=== PATIENT | female | born 1960 | race Caucasian/White ===

== ENCOUNTER → 2018-03-15 13:50 | Outpatient (CLI) | payer BC, SELFPAY ==
[2017-09-03 16:12] VITALS: BMI 23.8
--- NOTE | 2018-03-15 13:54 | CT_ITS ---
STUDY: CT ABDOMEN AND PELVIS WITH CONTRAST REASON FOR EXAM: Female, 57 years old. ANAL CA-RAD TX RADIATION DOSAGE (If Supplied By Facility): CTDIvol = ( 12.40 ) mGy, DLP = ( 987.55 ) mGycm TECHNIQUE: Transaxial images were obtained from the dome of the diaphragm to the symphysis pubis without oral contrast. 100 ml of Isovue 300 contrast was administered. Sagittal and coronal images were reconstructed. Individualized dose optimization techniques were used for this CT. COMPARISON: CTOct 2016 9:26am FINDINGS: The visualized lung bases are unremarkable. The visualized portions of the heart are within normal limits. There is a stable hypodensity in the left lobe of the liver. Normal gallbladder and extrahepatic biliary system. Normal spleen. Normal pancreas. Normal bilateral adrenal glands. Normal right kidney. Normal left kidney. Normal visualized stomach. Normal small intestine. Normal colon. The appendix is visualized and appears normal. There is diffuse atherosclerotic calcification of the abdominal aorta, without a demonstrated aneurysm. Normal inferior vena cava. Normal retroperitoneum. Normal urinary bladder. Normal visualized uterus. Normal abdominal wall. There are diffuse degenerative changes of the visualized lumbar spine. Loss of intervertebral disc height at L5-S1. Vacuum disc phenomenon at L5-S1. CT/Abdomen/Pelvis W IV Cont ONLY IMPRESSION: There is a stable hypodensity in the left lobe of the liver. Stable subcentimeter inguinal lymph nodes. Anal mass is not clearly appreciated. Electronically Signed: Lizandro Ventura MD at 22:51 EDT , Service support ,
--- NOTE | 2018-03-15 13:54 | CT_ITS ---
STUDY: CT CHEST WITH CONTRAST REASON FOR EXAM: Female, 57 years old. ANAL CA-RAD TX RADIATION DOSAGE (If Supplied By Facility): CTDIvol = ( 12.40 ) mGy, DLP = ( 987.55 ) mGycm TECHNIQUE: Transaxial imaging was performed following intravenous administration of 100 ml of Isovue 300 contrast material. Individualized dose optimization techniques were used for this CT. COMPARISON: None. FINDINGS: There is a right Port-A-Cath and/or mediport in place. The tip is in the superior vena cava. There are emphysematous changes of the lungs with emphysematous blebs. There is no demonstrated pleural abnormality. There are calcifications of the coronary arteries. Normal mediastinum. Normal hilar regions. Normal enhanced pulmonary arteries. There is atherosclerotic tortuosity of the aortic arch and descending thoracic aorta. There are multi-level degenerative changes of the thoracic spine. There is no demonstrated abnormality of the visualized upper abdomen. CT/Chest WITH Contrast IMPRESSION: There are coronary arterial calcifications. No evidence for metastatic disease to the chest. Electronically Signed: Lizandro Ventura MD at 22:48 EDT , Service support ,
[2018-03-15 14:50] LABS: CREATININE FINGERSTICK 0.7 mg/dL (0.55-1.02); EGFR FINGERSTICK > 60.0000 mL/min (>60)
== END ==
PROVIDERS: Visit Provider Internal Medicine Hematology & Oncology
DX: C21.0 Malignant neoplasm of anus, unspecified (principal)
CPT/HCPCS: 71260; 74177; Q9967

== ENCOUNTER → 2018-06-19 09:21 | Outpatient (CLI) | payer SELFPAY ==
[2018-03-16 10:01] VITALS: BMI 23.8
[2018-06-14 14:45] VITALS: BMI 24.6
--- NOTE | 2018-06-19 09:34 | BI_ITS ---
MAMMOGRAPHY - BILATERAL SCREENING REASON FOR EXAM: Female, 57 years old. Routine annual screening examination. PERTINENT HISTORY: Non-contributory. TECHNIQUE: Digital bilateral breast kady (3D mammographic acquisition) in the CC and MLO projections. 2-D mediolateral oblique (MLO) and craniocaudad (CC) views of both breasts were obtained. CAD: Full Field Digital Mammography with Computer Added Detection was performed. COMPARISON: Comparison is made with prior examination dated October 23, 2010. FINDINGS: Breast Composition: The breasts are heterogeneously dense, which may obscure small masses. There are no dominant masses or suspicious calcifications. No other significant abnormalities are identified. There has been no significant change since the prior study. BI/SCREENING MAMM (CAD), BILAT IMPRESSION: Stable bilateral screening mammogram. Yearly follow-up mammogram recommended. (A) ASSESSMENT CATEGORY: BIRADS Category 1: Negative. A letter regarding these results will be sent to the patient by the facility within 30 days. Approximately 10% of breast cancers are not detected by mammography. A normal mammogram should not delay biopsy of a clinically suspicious abnormality. [id number] Electronically Signed: Ricky Guy MD at 14:34 EDT Tel [phone], Service support ,
== END ==
PROVIDERS: Visit Provider Internal Medicine Hematology & Oncology
DX: Z12.31 Encounter for screening mammogram for malignant neoplasm of breast (principal)
CPT/HCPCS: 77063; 77067

== ENCOUNTER 2018-08-18 08:51 | Day surgery (SDC) | payer BC, SELFPAY ==
[2018-06-14 14:45] VITALS: BMI 24.6
[2018-08-04 13:30] VITALS: BMI 24.0
[2018-08-18 09:17] VITALS: BP 134/91; PULSE 74; RESP 16; TEMP 36.9; O2SAT 100; BMI 24.9
--- NOTE | 2018-08-18 11:10 | DCINST_ITS ---
Discharge Diet: Light diet - advance as tolerated - If you have questions about your diet instructions, please talk to your doctor. Discharge Activity: May Not Drive - for 1 week or while taking narcotic pain medicine. May shower in (days): 1 Lifting Restrictions: 10 pounds Call your doctor if your incision/area has: Continuous Slow Oozing, Sudden Increased Bleeding, Increased Pain/ Swelling, Increased Redness, Foul Smelling Discharge Call your doctor if you observe: Fever of 101 or Higher Suture Line Care: Avoid Pulling/Pushing, Avoid Pinching/Bending Additional Dressing/Incision Instructions:: Change or remove dressing in 4 days. Leave steri-strips in place for 1 week. Allergies/Adverse Reactions: Allergies cyclobenzaprine [From Flexeril] Allergy (Severe, Verified 08/17/18 10:00) Hives Medications to take at Discharge Multivitamin [Multiple Vitamins] 1 ea PO DAILY 06/17/17 Ibuprofen [Motrin] 600 mg PO Q4H PRN PRN 07/02/17 Vitamin E 1,000 unit PO DAILY #60 cap 01/19/18 Primary Care Physician: Care Physician,No Primary [Primary Care Provider] - Test Results: Test results from this visit will be discussed in further detail at your follow- up appointment, if applicable. Please Follow Up With: Bradley Archer MD - [phone] When: Call to make an appointment to be seen in about 10 days.
--- NOTE | 2018-08-18 11:10 | PCM.OPRPT ---
Problem List (1) Anal cancer Status: Chronic Report of Operation Date of Procedure: 08/18/18 Pre-Operative Diagnosis: anal cancer Post-Operative Diagnosis: same Surgery/Procedure Performed:: Anal/rectal exam under anesthesia Type of Anesthesia:: General Anesthesiologist: Alec Terry Description of Procedure: Patient was brought into the operating room. Placed in the supine position. Under excellent general anesthetic her legs were placed up in stirrups and the anal area the vaginal area was sterilely prepped and draped in the usual fashion. Visual inspection of the anus revealed no obvious lesions on the skin. It appeared normal. She did have some anal skin tags which were soft and nonpathologic. Digital rectal exam of the anus revealed no masses within the muscle whatsoever it felt smooth pliable nothing hard nothing suspicious. She had good anal tone. I did a deep rectal exam and I felt nothing suspicious all within the rectal cavity. Visual inspection within the rectum also revealed nothing abnormal within the mucosa. There was nothing here for me to biopsy it all appeared very normal. The patient tolerated the procedure well. - Admit VTE Documentation VTE Present on Admission: No VTE Mechan Device Prophylaxis: SCD's VTE Pharm Prophylaxis ordered?: No Reason prophylaxis not ordered:: Treatment Not Indicated
[2018-08-18 11:17] VITALS: BP 123/78; BP 134/91; PULSE 72; RESP 16; TEMP 37.4; O2SAT 95
[2018-08-18 11:30] VITALS: BP 111/74; BP 134/91; PULSE 70; RESP 16; O2SAT 96
[2018-08-18 11:42] VITALS: BP 121/85; BP 134/91; PULSE 68; RESP 16; TEMP 37.5; O2SAT 95
--- NOTE | 2018-08-18 12:09 | SUR.PHASEII ---
CLARIFIED D/C INSTRUCTIONS WITH DR PANDYA, DOES NOT NEED 10 LB LIFTING RESTRICTIONS, DRIVING RESTRICTION [OTHER THAN STANDARD 24 HOUR PROTOCOL], NO INCISION OR DRESSING CARE. HOWEVER, MUST VOID PRIOR TO D/C. PATIENT UPDATED.
[2018-08-18 12:10] VITALS: BP 134/91
--- OUTSIDE RECORDS SUMMARY | 2018-11-19 09:27 | XMS RPT_ITS ---
:1960 Author Organization OHIP Support Name Relationship Address Phone ARJUN JONES Unavailable [id number] + [place] [address] JANKATHERYN, JAVIER Unavailable Unavailable + [facility] Unavailable [address] + [place] [address] HEBER ARJUN Unavailable [address] + [place] [address] JAN, JAVIER Unavailable Unavailable + [facility] Unavailable [address] + [place] [address] FORMERLY [facility], ARJUN Unavailable [address] + [place] [address] JANKATHERYN, JAVIER Unavailable Unavailable + [facility] Unavailable [address] + [place] [address] HEBER, ARJUN Unavailable [address] + [place] [address] JANAS, JAVIER Unavailable Unavailable + [facility] Unavailable [address] + [place] [address] JAN, JAVIER Unavailable . + [place] [address] HEBER ARJUN Unavailable [address] + [place] [address] [facility] Unavailable [address] + [place] [address] Julio Jones Unavailable Unavailable + Julio Jones Unavailable Unavailable + JANAS, JAVIER Unavailable Unavailable + JANAS, ARJUN Unavailable [address] + [place] [address] [facility] Unavailable [address] + [place] [address] JANAS, JAVIER Unavailable Unavailable + JANAS, ARJUN Unavailable [address] + [place] [address] [facility] Unavailable [address] + [place] [address] JANAS, JAVIER Unavailable Unavailable + JANAS, ARJUN Unavailable [address] + [place] [address] [facility] Unavailable [address] + [place] [address] JANAS, JAVIER Unavailable . + [place] [address] JANAS, ARJUN Unavailable [address] + [place] [address] [facility] Unavailable [address] + [place] [address] JANAS, JAVIER Unavailable . + [place] [address] JANAS, ARJUN Unavailable [address] + [place] [address] [facility] Unavailable [address] + [place] [address] JANAS, JAVIER Unavailable Unavailable + [place] [address] JANAS, ARJUN Unavailable [address] + [place] [address] [facility] Unavailable [address] + [place] [address] JANAS, JAVIER Unavailable Unavailable + [place] [address] JANAS, ARJUN Unavailable [address] + [place] [address] [facility] Unavailable [address] + [place] [address] JANAS, JAVIER Unavailable Unavailable + [place] [address] JANAS, ARJUN Unavailable [address] + [place] [address] [facility] Unavailable [address] + [place] [address] JANAS, JAVIER Unavailable . + [place] [address] JAN, EMERSON Unavailable . + [place] [address] [facility] Unavailable [address] + [place] [address] JANAS, ARJUN Unavailable [address] + [place] [address] [facility] Unavailable [address] + [place] [address] Care Team Providers Name Role Phone Irvin Taylor Attending Unavailable PROVIDER, UNKNOWN Referring Unavailable No, PCP Primary Care Unavailable Irvin Taylor Attending Unavailable PROVIDER, UNKNOWN Referring Unavailable No, PCP Primary Care Unavailable Bradley Archer Attending Unavailable KristinusJuan Attending Unavailable Primay Care Physicia, No Referring Unavailable Primay Care Physicia, No Primary Care Unavailable Isckarus, Mansour Consulting Unavailable Mickykarus, Mansour Attending Unavailable Primay Care Physicia, No Primary Care Unavailable Primay Care Physicia, No Referring Unavailable Bradley Archer Attending Unavailable Primay Care Physicia, No Referring Unavailable Bradley Archer Attending Unavailable Primay Care Physicia, No Referring Unavailable Primay Care Physicia, No Primary Care Unavailable Isckarus, Mansour Attending Unavailable Primay Care Physicia, No Primary Care Unavailable Isckarus, Mansour Consulting Unavailable Jason Sorto Attending Unavailable Primay Care Physicia, No Referring Unavailable Primay Care Physicia, No Primary Care Unavailable Isckarus, Mansour Consulting Unavailable Primay Care Physicia, No Primary Care Unavailable Isckarus, Mansour Attending Unavailable Isckarus, Mansour Referring Unavailable Isckarus, Mansour Attending Unavailable Primay Care Physicia, No Referring Unavailable Primay Care Physicia, No Primary Care Unavailable Isckarus, Mansour Consulting Unavailable [place], Bradley Attending Unavailable Isckarus, Mansour Referring Unavailable Isckarus, Mansour Attending Unavailable Primay Care Physicia, No Referring Unavailable Primay Care Physicia, No Primary Care Unavailable Isckarus, Mansour Consulting Unavailable Isckarus, Mansour Attending Unavailable Primay Care Physicia, No Primary Care Unavailable NoreenJason Attending Unavailable Gianni, Bradley Attending Unavailable Primay Care Physicia, No Referring Unavailable [place], Bradley Attending Unavailable [place], Bradley Referring Unavailable Primay Care Physicia, No Primary Care Unavailable PROBLEMS PROBLEMS DATE TYPE CONDITION / CODE ATTENDING STATUS SOURCE 09/22/2018 Unknown C21.0 - Malignant Isckarus, Active [place] neoplasm of anus, [facility] unspecified / Hospital C21.0(ICD-10) Repository 09/22/2018 Unknown C21.1 - Malignant Isckarus, Active [place] neoplasm of anal [facility] canal / Hospital C21.1(ICD-10) Repository 09/22/2018 Unknown C77.9 - Secondary Isckarus, Active [place] and unspecified [facility] malignant neoplasm Hospital of lymph node, Repository unspecified / C77.9(ICD-10) 07/01/2018 Admitting Other specified Brandon, Active [facility] disorders of [facility] urethra / Repository N36.8(ICD-10) 07/01/2018 Admitting Personal history Brandon, Active [facility] Diagnosis of nicotine [facility] dependence / Repository Z87.891(ICD-10) 07/01/2018 Admitting Prsnl hx of malig Brandon, Active [facility] Diagnosis neoplm of rectum, [facility] rectosig junct, Repository and anus / Z85.048(ICD-10) 07/01/2018 Admitting Personal history Brandon, Active [facility] Diagnosis of irradiation / [facility] Z92.3(ICD-10) Repository 07/01/2018 Admitting Allergy status to Brandon, Active [facility] Diagnosis oth drug/meds/biol [facility] subst status / Repository Z88.8(ICD-10) 07/01/2018 Admitting Overweight / Brandon, Active [facility] Diagnosis E66.3(ICD-10) [facility] Repository 07/01/2018 Admitting Body mass index Brandon, Active [facility] (BMI) 25.0-25.9, [facility] adult / Repository Z68.25(ICD-10) 06/25/2018 Admitting Encounter for Jeri Taylor Diagnosis other [facility] preprocedural Repository examination / Z01.818(ICD-10) 01/19/2018 Unknown T66.XXXA - Jason Sorto Active [facility] sickness, Hospital unspecified, Repository initial encounter / T66.XXXA(ICD-10) PROCEDURES PROCEDURES No Procedure Records FoundRESULTS RESULTS ONCOLOGY VISIT REPORT Observed: 09/15/2018 Status: F Source: [place] 3:33 PM [facility] REPOSITORY [facility] Medical Oncology [facility] [place] [address] OFFICE VISIT Date of Service: 09/15/18 1520 MR#: [id number] Acct: [id number] Name: LYNNETTE JONES Rep #: [id number] : 1960 From: Juan Alvarez MD Age/Sex: 57/F Location: OMD Status: Signed - Problem List (1) Anal cancer Status: Chronic (2) Regional lymph node metastasis present Status: Chronic - Date of Service Date of Service:: 09/15/18 - Chief Complaint anal cancer followup - History of Present Illness Patient is a 56-year-old female who over the course of the past 2 months or so has had an increasing sense of discomfort and fullness in the anal rectal area. Sometime later she felt an enlarged lymph node in the left groin which was confirmed on a CT scan of the abdomen and pelvis. On June 18, 2017 she underwent colonoscopy by Dr. Archer which revealed a mass lesion without ulceration extending from the anus into the rectum approximately 3 cm in length. An ultrasound-guided needle core biopsy from the left inguinal lymph node on June 19, 2017 revealed a metastatic squamous cell carcinoma. The patient otherwise has no known chronic medical illnesses. However she has been a smoker most of her adult life and consumes an average 12 pack of beer every week. 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 PET-CT initial staging on June 29, 2017 showed abnormal uptake confined to the anorectal area and the left groin. Treatment: 5400 cGy in 30 fractions to the primary anal tumor with a margin, 5040 cGy in 30 fractions to the left inguinal LN, and 4500 cGy in 30 fractions to the elective lymph node volumes including perirectal, pre-sacral, and bilateral inguinal and external/internal iliac nodes. The patient received concurrent chemotherapy with CIV 5-FU and MMC. Date of first treatment: 07/14/17 Date of last treatment: 08/26/17 - Past Medical/Social History Past Medical History Other Past Medical History: REFLUX Cancer: Rectal cancer Past Surgical History Other Surgical History: GANGLION CYST RIGHT WRIST Family History Paternal Past Medical History: Heart disease,Hyperlipidemia,Hypertension Maternal Past Medical History: Heart disease,Hyperlipidemia,Hypertension Social History Smoking Status Former smoker Review of Systems Constitutional:: Denies: Fever, Sweats, Weight loss, Appetite change, Chills Cardiovascular:: Denies: Chest pain, Palpitations, Dyspnea on exertion, Orthopnea, PND, Shortness of breath Respiratory: Denies: Cough, Hemoptysis, Shortness of Breath, Wheezing Gastrointestinal:: Denies: Abdominal pain, Nausea, Vomiting, Diarrhea, Constipation, Hematochezia Genitourinary: Denies: Dysuria, Hematuria, 15, Flank pain Musculoskeletal:: Denies: Back pain, Myalgia, Arthralgia Skin: Denies: Rash, Skin Changes, Wounds Neurological:: Denies: Headache, Dizziness, Visual changes, Tinnitus, Hearing loss Psychiatric: Denies: Anxiety, Depression, Homicidal Ideations, Suicidal Ideations Vital Signs Height 5 ft 4 in Weight: 68.039 kg Weight in Pounds 150.0 lbs BMI 24.6 Pulse Ox 100 - Physical Exam General: Alert, Oriented x3, No apparent distress, - - ECOG 0 HEENT: Atraumatic, PERRLA, EOMI, Normocephalic Oropharynx:: Dry mucosa Neck:: Supple, Trachea midline. Negative for: JVD, bilateral Cardiac:: Regular rate, Regular rhythm, Normal S1, Normal S2. Negative for: Murmur Lungs: Clear to auscultation, Excusion symmetrical. Negative for: Rhonchi, Wheezes Abdomen:: Soft, Non-tender, Non-distended. Negative for: Hepatosplenomegaly Extremities:: Negative for: Cyanosis, Edema Neurological: Neuro grossly intact Skin:: Negative for: Lesions, Rash, Petechiae, Ecchymosis Psychiatric:: Appropriate affect, Euthymic Lymphatics:: - - No inguinal adenopathy. 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 HIV NEG . Received definitive combined chemoradiation with intent to cure and sparing the anal sphincter 07-12. Seen July of [address] Archer (Anal/rectal exam under anesthesia). She is in complete remission she will go on surveillance with: * GARRISON every 3-6 months for 5 years. * Inguinal lymph node assessment by palpation +/-ultrasound every 3-6 months for 5 years. * Ansocopy every 6-12 months for 3 years. * Annual chest, abdomen and pelvis CT for 3 years, due February 2019. Impression and plan discussed. Follow-up in 3 months Annual screening mammo to schedule 05/[address] chest for screening for lung cancer 02/2019. Medications: Prescriptions This Visit Medication Instructions Recorded Ibuprofen [Motrin] 600 mg PO Q4H PRN PRN 07/02/17 Vitamin E 1,000 unit PO DAILY #60 cap 01/19/18 Primary Care Provider: No Primary Care Phys Referring Provider: 09/15/18 1533 <Electronically signed by Juan Alvarez MD> Date Juan Alvarez MD Cosigner Signature: Date (if applicable) CC: OPERATIVE REPORT Observed: 08/19/2018 Status: F Source: [place] 11:17 AM [facility] REPOSITORY [facility] Medical Records Department [address] [place] [address] Operative Report 08/18/18 1110 MR#: [id number] Acct: [id number] Name: LYNNETTE JONES Rep #: [id number] : 1960 57 From: Bradley Archer MD PCP: Care Physician, No Primary Status: [facility] Location: [facility] Problem List (1) Anal cancer Status: Chronic Report of Operation Date of Procedure: 08/18/18 Pre-Operative Diagnosis: anal cancer Post-Operative Diagnosis: same Surgery/Procedure Performed:: Anal/rectal exam under anesthesia Type of Anesthesia:: General Anesthesiologist: Alec Terry Description of Procedure: Patient was brought into the operating room. Placed in the supine position. Under excellent general anesthetic her legs were placed up in stirrups and the anal area the vaginal area was sterilely prepped and draped in the usual fashion. Visual inspection of the anus revealed no obvious lesions on the skin. It appeared normal. She did have some anal skin tags which were soft and nonpathologic. Digital rectal exam of the anus revealed no masses within the muscle whatsoever it felt smooth pliable nothing hard nothing suspicious. She had good anal tone. I did a deep rectal exam and I felt nothing suspicious all within the rectal cavity. Visual inspection within the rectum also revealed nothing abnormal within the mucosa. There was nothing here for me to biopsy it all appeared very normal. The patient tolerated the procedure well. - Admit VTE Documentation VTE Present on Admission: No VTE Mechan Device Prophylaxis: SCD's VTE Pharm Prophylaxis ordered?: No Reason prophylaxis not ordered:: Treatment Not Indicated 08/19/18 1117 <Electronically signed by Bradley Archer MD> Date Bradley Archer MD CC: No Primary Care Physician; Bradley Archer MD Signed DISCHARGE INSTRUCTION Observed: 08/18/2018 Status: F Source: [place] 11:10 AM [facility] REPOSITORY [facility] Medical Records Department [address] [place] [address] Instructions for Home/Discharge Instructions 08/18/18 1109 MR#: [id number] Acct: [id number] Name: LYNNETTE JONES Rep #: [id number] : 1960 57 From: Bradley Archer MD PCP: Care Physician, No Primary Status: REG [facility] Discharge Diet: Light diet - advance as tolerated - If you have questions about your diet instructions, please talk to your doctor. Discharge Activity: May Not Drive - for 1 week or while taking narcotic pain medicine. May shower in (days): 1 Lifting Restrictions: 10 pounds Call your doctor if your incision/area has: Continuous Slow Oozing, Sudden Increased Bleeding, Increased Pain/ Swelling, Increased Redness, Foul Smelling Discharge Call your doctor if you observe: Fever of 101 or Higher Suture Line Care: Avoid Pulling/Pushing, Avoid Pinching/Bending Additional Dressing/Incision Instructions:: Change or remove dressing in 4 days. Leave steri-strips in place for 1 week. Allergies/Adverse Reactions: Allergies cyclobenzaprine [From Flexeril] Allergy (Severe, Verified 08/17/18 10:00) Hives Medications to take at Discharge Multivitamin [Multiple Vitamins] 1 ea PO DAILY 06/17/17 Ibuprofen [Motrin] 600 mg PO Q4H PRN PRN 07/02/17 Vitamin E 1,000 unit PO DAILY #60 cap 01/19/18 Primary Care Physician: Care Physician,No Primary [Primary Care Provider] - Test Results: Test results from this visit will be discussed in further detail at your follow-up appointment, if applicable. Please Follow Up With: Bradley Archer MD - [phone] When: Call to make an appointment to be seen in about 10 days. 08/18/18 1110 <Electronically signed by Bradley Archer MD> Date Bradley Archer MD CC: No Primary Care Physician SURGERY VISIT REPORT Observed: 08/11/2018 Status: F Source: [place] 8:32 AM [facility] REPOSITORY [facility] [address] [place], [place] [address]. 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 Is patient in pain?: No Allergies cyclobenzaprine [From Flexeril] Adverse Reaction (Severe, Verified 08/04/18 13:20) Hives Medications Multivitamin [Multiple Vitamins] 1 ea PO DAILY 06/17/17 [History Confirmed 08/04/18] Ibuprofen [Motrin] 600 mg PO Q4H PRN PRN 07/02/17 [History Confirmed 08/04/18] Pentoxifylline [Trental] 400 mg PO TID #90 tab 01/19/18 [Rx Confirmed 08/04/18] Vitamin E 1,000 unit PO DAILY #60 cap 01/19/18 [Rx Confirmed 08/04/18] PFSH Medical History PORT PLACEMENT (Acute) GERD (gastroesophageal reflux disease) (Acute) Ganglion cyst of dorsum of right wrist (Acute) Mucositis due to antineoplastic therapy (Resolved) Pancytopenia (Resolved) Stomatitis (Acute) Regional lymph node metastasis present (Chronic) Anal cancer (Chronic) Family History Father Heart disease Hyperlipidemia Hypertension Mother Heart disease Hyperlipidemia Hypertension Social History Smoking Status: Former smoker HPI HPI HPI: LYNNETTE JONES, is a 57 F who presents to the office today for squamous cell cancer of the anus. From 07/14/2017 through 08/26/2017 she received definitive concurrent chemoradiation consistent of dose painting I am RT delivering 54 centigrade in 30 fractions with concurrent continuous infusions of 5-FU and mitomycin-C. She presents to my office today for further follow-up. Her most recent CT scan of her abdomen and pelvis has been negative. And she is coming to my office today so that we can do an exam under anesthesia with possible anal biopsies. Exam Const General: well developed, no acute distress, well hydrated Orientation: oriented to person, oriented to place, oriented to time [facility] Head: normocephalic, atraumatic Ears: external ears normal Mouth: moist mucous membranes Eyes Sclera: sclerae normal Pupils: normal by confrontation Neck Neck: no lymphadenopathy noted Neck mass: No Thyroid: symmetrical, thyroid normal Chest Chest palpation AND inspection: normal inspection of the chest Resp Effort AND Inspection: normal respiratory effort Auscultation: clear to auscultation bilaterally Percussion: percussion normal Cardio Rate: regular rate Rhythm: regular rhythm GI Palpation: soft, no masses, no hepatosplenomegaly, nontender Rectal Exam: other Other: Rectal exam deferred. Extrem General: no clubbing, cyanosis or edema, normal to inspection Assessment AND Plan Problems 1. Anal cancer C21.0 Plan My plan is to do an exam under anesthesia with possible anal biopsiesWe discussed the risks and benefits of the planned procedure. I have informed the patient that complications can occur including failure to complete the procedure. The patient had the opportunity to ask questions concerning the planned procedure. My staff has also explained the procedure to the patient in understandable terms and has given the patient printed material concerning the procedure. The patient freely consents to the procedure. Coding Level of Care Code Off vis,est,level 3 Diagnoses Anal cancer C21.0 08/11/18 0832 <Electronically signed by Bradley Archer MD> Date Bradley Archer MD Cosign Signature: Date (if applicable) CC: OP NOTE Observed: 07/02/2018 Status: F Source: Contrib 5:41 AM SYSTEM REPOSITORY PATIENT: LYNNETTE JONES ADMISSION DATE: 07/01/2018 SURGERY DATE: 07/01/2018 DATE OF : 1960 AGE: 57 ADMITTING PHYSICIAN: Irvin Taylor MD ATTENDING PHYSICIAN: Irvin Taylor MD DICTATING PHYSICIAN: Irvin Taylor MD OPERATIVE RECORD Procedure: EXCISION OF VAGINAL CYST AND CYSTOSCOPY. Preoperative Diagnosis: Suburethral cyst. Postoperative Diagnosis: Suburethral cyst. Anesthesia: General endotracheal. Enrollment Nurse: Beata Arce M.D. Complications: None. Estimated Blood Loss: Minimal. 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 She presents today for excision of urethral diverticulum and cystoscopy understanding the risks, benefits, and alternatives to include risk of bleeding, infection, injury to internal organs, including possible injury to bladder and urethra. She also understood the inherent risks of recurrent cyst formation as well as pelvic pain. She understands all of the above and elects to proceed. Description of Procedure: The patient was taken to the operating room. She underwent general endotracheal anesthesia without difficulty. She was then placed in a low dorsal lithotomy position using Yellofin stirrups, and prepped and draped in usual surgical fashion. A Woods catheter was placed to drainage. The anterior vaginal mucosa below the urethra was injected with a solution of 1% lidocaine with epinephrine and opened in the midline using a scalpel. The underlying periurethral and perivesical tissues were dissected out laterally. The cyst appeared to be off to the right side of the urethra. It was carefully excised away from the urethra and there did not appear to actually be a communication with the urethra suggesting that this was either a benign vaginal cyst or possibly Nogales's gland cyst. Redundant surrounding tissue as well as the cyst were excised and submitted to pathology for evaluation. space was closed using interrupted sutures of 2-0 Vicryl and the mucosa was then reapproximated using a running locking suture of 2-0 Vicryl assuring hemostasis. Woods catheter was then removed after allowing the bladder to completely drain. The patient tolerated the procedure well was transported to recovery in stable condition. Sponge, lap, and needle counts were correct x2 according to nursing. Diskriter Job ID: [id number] Irvin Taylor MD DOD:07/02/2018 05:41 A JOSE/bryon DOT:07/02/2018 07:14 A Job Number: [id number] Document Number: [id number] cc: Irvin Taylor MD [address] [address] Observed: 07/01/2018 Status: F Source: [facility] SURGICAL PATHOLOGY 11:05 AM SYSTEM REPOSITORY [id number] [facility] PATHOLOGY AND LABORATORY MEDICINE [address] [place] [id number] FINAL SURGICAL PATHOLOGY REPORT NAME: LYNNETTE JONSE : 1960 57 Y F BILLING NO.: [id number] LOCATION: [address] PROCEDURE 07/01/2018 DATE: SURGEON: IRVIN TAYLOR MD RECEIVED 07/01/2018 DATE: ATTENDING: IRVIN TAYLOR MD REPORT DATE: 07/06/2018 COPIES TO: DIAGNOSIS: SUBURETHRAL CYST - FIBROCONNECTIVE AND FIBROMUSCULAR TISSUE WITH INFLAMED SQUAMO-GLANDULAR CYST. SMT/SMT <Sign Out Dr. Thomson> Emory BELL M.D. CLINICAL INFORMATION: Suburethral cyst SPECIMEN: CYST GROSS DESCRIPTION: Vaginal cyst Received in formalin are portions of somewhat irregular, rubbery, pink-uriarte to stone tissue segments aggregating to 1 x 1 cm. Definite cyst is not identified. The specimen is entirely submitted in a single cassette. (bits ss, 1) JCK/KMS1 Disclaimer: The following statement applies to all immunohistochemistry, in situ hybridization, molecular studies, and immunofluorescence testing. The use of one or more reagents in the above tests is regulated as an analyte specific reagent (ASR). These tests were developed and their performance characteristics determined by the clinical laboratories of [facility]. They have not been cleared by the US Food and Drug Administration (FDA). The FDA has determined that such clearance or approval is not necessary. All the above immunostains were performed on paraffin embedded tissue. Appropriate positive and negative controls (where applicable) were run in parallel with the patient's specimen; these controls showed expected staining pattern, with acceptable intensity of staining. Immunohistochemical assays have not been validated on decalcified tissues. Results should be interpreted with caution given the raised possibility of false negativity on decalcified specimens. Professional Performing Location: [place] [address]. DEPARTMENT OF PATHOLOGY AND LABORATORY MEDICINE [place], [place] [address] SCREENING MAMM (CAD), Observed: 06/19/2018 Status: F Source: SEGUN BILAT 9:34 AM [facility] REPOSITORY [facility] Imaging Services [address] [place] [id number] SCREENING MAMM (CAD), BIL MR#: [id number] Acct: [id number] Name: LYNNETTE JONES Rep #: [id number] : 1960 F 57 From: Ricky Guy MD PCP: Care Physician, No Primary Status: REG CLI Study: SCREENING MAMM (CAD), BILAT Date of Exam: 06/19/18 Exam# [id number] Ordering Dr: Juan Alvarez MD MAMMOGRAPHY - BILATERAL SCREENING REASON FOR EXAM: Female, 57 years old. Routine annual screening examination. PERTINENT HISTORY: Non-contributory. TECHNIQUE: Digital bilateral breast kady (3D mammographic acquisition) in the CC and MLO projections. 2-D mediolateral oblique (MLO) and craniocaudad (CC) views of both breasts were obtained. CAD: Full Field Digital Mammography with Computer Added Detection was performed. COMPARISON: Comparison is made with prior examination dated October 23, 2010. FINDINGS: Breast Composition: The breasts are heterogeneously dense, which may obscure small masses. There are no dominant masses or suspicious calcifications. No other significant abnormalities are identified. There has been no significant change since the prior study. BI/SCREENING MAMM (CAD), BILAT IMPRESSION: Stable bilateral screening mammogram. Yearly follow-up mammogram recommended. (A) ASSESSMENT CATEGORY: BIRADS Category 1: Negative. A letter regarding these results will be sent to the patient by the facility within 30 days. Approximately 10% of breast cancers are not detected by mammography. A normal mammogram should not delay biopsy of a clinically suspicious abnormality. [id number] Electronically Signed: Ricky Guy MD at 14:34 EDT Tel [phone], Service support , CC: No Primary Care Physician; Juan Alvarez MD Blueprint Developer: Signed ONCOLOGY FOLLOW-UP Observed: 06/14/2018 Status: F Source: AMBROSE VISIT 3:53 PM [facility] REPOSITORY 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 From 07/14/2017 through 08/26/2017 she received definitive concurrent chemoradiation consisting of dose painting IMRT delivering 5400 cGy in 30 fractions with concurrent continuous infusion 5- FU and mitomycin-C. History of Present Illness: The patient noticed a perianal mass in March 2017 which has been uncomfortable at times but has not resulted in obvious pain or any bleeding at all. Additionally she has noted a painless enlarged lymph node in the left groin. 06/15/2017: The patient was evaluated by Dr. Archer with [facility]. On exam there is noted to be a perianal mass in the left anterior aspect with the overlying anal mucosa appearing smooth but firm, the mass is not tender to the touch and there are no signs of abscess or fistula formation. There is noted to be an enlarged palpable lymph node in the left groin measuring approximately 2 cm in greatest diameter. 06/16/2017: CT scan of the abdomen and pelvis with contrast was performed and revealed a 1.7 cm simple cyst in the left lobe of the liver, a pathologically enlarged 2.3 x 1.7 cm left inguinal lymph node, and no other abnormality including no evidence of a rectal mass was noted. 06/18/2017: Patient underwent colonoscopy. Within the rectum there is no appearance of obvious visual lesions seen with retroflexion, however rectal exam does show a mass that goes from the anus into the rectum and is submucosal in nature and measures about 3 cm in length. The mass is described as firm and rubbery and there are no fungating masses within the mucosa of the rectum itself. There are no other lesions or abnormalities within the remainder of the colonoscopy including in the sigmoid colon, descending colon, transverse colon, ascending colon, or cecum. 06/19/2017: Ultrasound-guided needle core biopsy of the left inguinal lymph node was completed and pathology demonstrated metastatic squamous cell carcinoma. 06/29/17: PET scan was completed and showed focal increased metabolic uptake with an SUV of 9 within the lower pelvis contiguous to the distal rectal vault and anal verge, the abnormality measures 24.6 mm. There is asymmetric increased glucose concentration demonstrated in the left inguinal region in 2 separate nodular areas generating a calculated SUV of 6.7 and the maximal axial diameter of the largest most conspicuous soft tissue density is 20.8 mm. There is mild increased glucose metabolism defined in the right thoracic perihilum generating a calculated maximum SUV of 2.0 and this is not felt to be concerning for neoplasm. There is no evidence of metastatic disease or other abnormality. From 07/14/2017 through 08/26/2017 she received definitive concurrent chemoradiation consisting of dose painting IMRT delivering 5400 cGy in 30 fractions with concurrent continuous infusion 5-FU and mitomycin-C. 11/24/2017: Patient had follow-up with surgeon who performed digital rectal exam showing swelling but no discrete mass appreciated. Also documented is that the previously noted left inguinal lymphadenopathy was not apparent on exam. 12/14/2017: Patient was evaluated by medical oncology, laboratory data including CBC and CMP were unremarkable. Imaging including CT chest abdomen pelvis was ordered to be completed in February. 03/15/2018: CT chest abdomen and pelvis was completed which demonstrated no anal mass or abnormality appreciated, stable subcentimeter inguinal lymph nodes, stable hypodensity within the left lobe of the liver, and no evidence for metastatic disease. 03/20/18: Completed follow up with surgery and had port removed. Radiation Treatment History: 1) From 07/14/2017 through 08/26/2017 she received definitive concurrent chemoradiation consisting of dose painting IMRT delivering 5400 cGy in 30 fractions with concurrent continuous infusion 5-FU and mitomycin-C. No pacemaker, no history of collagen vascular disease. Interval History: Lynnette Jones returns for follow-up about 10 months after completing definitive chemoradiation therapy for anal cancer. Patient does report doing fairly well overall. However she has still been experiencing discomfort with sexual intercourse and feels like there is a sore on the anterior aspect of the vagina. She has seen a order filler and was planning to have a procedure done in the next couple weeks but she is not clear on exactly what is being planned. At our last visit in December 2017 there was a very small ulcer- like lesion in the anterior vaginal wall that was felt to be radiation related, she has been taking Trental/vitamin E for the last 5 months. This soreness has been present since completing radiation therapy and the pain is only present during intercourse and is not noticeable at any other time. She denies having vaginal bleeding or discharge, denies itchiness or other associated symptoms. She also believes that she has enough vaginal lubrication without using a lubricant. She reports having increased rectal urgency a couple hours after each meal and will go to the bathroom a few times per day. She denies having diarrhea, rectal bleeding, pain, bloating, abdominal pain. She denies having urinary frequency, dysuria, hematuria, or other problems with urination. She denies having any new lymphadenopathy and denies having any edema or weakness/numbness in her legs. She reports a mildly decreased appetite as her taste has not recovered from chemotherapy but she denies having any recent weight loss. She reports having normal energy and continues to work full-time without difficulty. She completes all activities of daily living without difficulty. She still smoking a couple cigarettes per day but is trying to completely cease smoking. I have reviewed the medical, surgical, and other pertinent history in details and have updated medication and allergy information in the electronic medical record. Review of Systems: A 12-point review of systems was completed and was negative except for what is noted in the HPI/Interval History and by the nurse. Height/Weight/BMI: Height: 5 ft 4 in Weight: 143.6 lbs Vital Signs Temperature 98.4 F 06/14/18 14:00 Temperature Source Temporal Artery 06/14/18 14:00 Pulse Rate 72 06/14/18 14:00 Respiratory Rate 16 06/14/18 14:00 Physical Exam: ECO KARNOFSKY SCORE: 100 CONSTITUTIONAL: Well-developed, well-nourished, and in no apparent distress. HEENT: Mucous membranes moist. No evidence of thrush or lesions within the visualized oropharynx or oral cavity. No trismus. Pupils are equal, round, and reactive to light and accommodation. Extraocular movements are intact. Sclerae are anicteric. NECK: Supple,with no thyromegaly, and non-tender. Trachea midline. No cervical or supraclavicular adenopathy noted. CARDIAC: Regular rate and rhythm. Normal S1, S2. No murmurs, rubs, or gallops. PULMONARY/CHEST: Lungs are clear to auscultation and percussion bilaterally. No wheezes, rhonchi, or crackles noted. No increased work of breathing. ABDOMINAL: Abdomen soft, non-tender, non-distended. No hepatomegaly. Normoactive bowel sounds in all four quadrants. No guarding, rebound. GARRISON: Perianal skin has healed well without any desquamation or erythema. The anal canal mucosa is smooth without nodularity, there is no apparent mass noted. BEDSPREAD CUTTER HAND: External genitalia normal in appearance with some mild swelling. Bimanual exam and speculum exam were performed. Exam was without pain in the vaginal canal other than a small area of pain at the anterior wall of the vagina with palpation this area is about 3 mm and appears rough but no ulceration is noted, no evidence for bleeding. This area is very close to the urethra. There were no other palpable asymmetries or lesions, the cervix was palpated and also felt normal without lesions. No groin lymphadenopathy is present. BACK: Straight and aligned. No CVA tenderness. Axial skeleton non-tender to percussion. EXTREMITIES: Full range of motion in all four extremities, with normal strength equally and symmetrically. No evidence of edema. No clubbing. PSYCHIATRIC: Appropriate mood and affect for the clinical situation. Imaging: As per HPI CT chest abdomen pelvis completed in February 2018 were reviewed showing no evidence for any abnormality. 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 From 07/14/2017 through 08/26/2017 she received definitive concurrent chemoradiation consisting of dose painting IMRT delivering 5400 cGy in 30 fractions with concurrent continuous infusion 5- FU and mitomycin-C. Plan: Lynnette Jones returns for a routine 10 month follow-up after completing definitive chemoradiation therapy for anal cancer. Clinically she is doing well however she has persistent sore on the anterior vaginal wall causing discomfort with intercourse. On exam there is no evidence of disease within the groin or anal canal. There is an approximately 3 mm rough area in the anterior vaginal canal which to me looks mildly improved since December 2017. She has seen a order filler and uro-order filler and she is not entirely sure about the details but reports there is a planned procedure in the coming weeks, I will reach out to get more records to better understand the situation. I believe this could be related to the previous radiation therapy and that she may have persistent difficulty of healing in this area, she has been taking Trental and vitamin E trial and will complete 6 months of therapy next month. I recommended that she completely cease smoking. She continues to be evaluated by her surgeon Dr. Archer who evaluated her in February but she did not have anoscopy, this is planned for August 2018. CT chest abdomen and pelvis in February showed no evidence of disease, will have annual CTs for 3 years. I will plan to see her in November to continue alternating visits with Dr. Archer. She was instructed to call with any further questions or concerns in the interim. Health Maintenance: Recommend health well-balanced diet as well as persistent cardiovascular exercise program to maintain healthy weight and maximally reduce risk of disease recurrence. Recommend colonoscopy for colorectal cancer screening. Mammogram to be completed this Thursday, 06/18. Recommend that she continue gynecologic screening. Follow up with PCP regarding all other medical problems. Jason Sorto DO, MS [employer] Driver, Department of Radiation Oncology [facility] 06/14/18 2871 <Electronically signed by Jason Sorto DO> Date Jason Sorto DO CC: Bradley Archer MD; Juan Alvarez MD Signed ONCOLOGY VISIT REPORT Observed: 06/14/2018 Status: F Source: AMBROSE 2:23 PM [facility] REPOSITORY [facility] [place] [address] OFFICE VISIT Date of Service: 06/14/18 1349 MR#: [id number] Acct: [id number] Name: HEBERLYNNETTE Rep #: [id number] : 1960 From: Juan Alvarez MD Age/Sex: 57/F Location: [facility] Status: Signed - Problem List (1) Anal cancer Status: Chronic (2) Regional lymph node metastasis present Status: Chronic - Date of Service Date of Service:: 06/14/18 - Chief Complaint Anal cancer follow-up - History of Present Illness Patient is a 56-year-old female who over the course of the past 2 months or so has had an increasing sense of discomfort and fullness in the anal rectal area. Sometime later she felt an enlarged lymph node in the left groin which was confirmed on a CT scan of the abdomen and pelvis. On June 18, 2017 she underwent colonoscopy by Dr. Archer which revealed a mass lesion without ulceration extending from the anus into the rectum approximately 3 cm in length. An ultrasound-guided needle core biopsy from the left inguinal lymph node on June 19, 2017 revealed a metastatic squamous cell carcinoma. The patient otherwise has no known chronic medical illnesses. However she has been a smoker most of her adult life and consumes an average 12 pack of beer every week. 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 PET-CT initial staging on June 29, 2017 showed abnormal uptake confined to the anorectal area and the left groin. Treatment: 5400 cGy in 30 fractions to the primary anal tumor with a margin, 5040 cGy in 30 fractions to the left inguinal LN, and 4500 cGy in 30 fractions to the elective lymph node volumes including perirectal, pre-sacral, and bilateral inguinal and external/internal iliac nodes. The patient received concurrent chemotherapy with CIV 5-FU and MMC. Date of first treatment: 07/14/17 Date of last treatment: 08/26/17 - Past Medical/Social History Past Medical History Other Past Medical History: REFLUX Cancer: Rectal cancer Past Surgical History Other Surgical History: GANGLION CYST RIGHT WRIST Family History Paternal Past Medical History: Heart disease,Hyperlipidemia,Hypertension Maternal Past Medical History: Heart disease,Hyperlipidemia,Hypertension Social History Smoking Status Former smoker Review of Systems Constitutional:: Denies: Fever, Sweats, Weight loss, Appetite change, Chills Cardiovascular:: Denies: Chest pain, Palpitations, Dyspnea on exertion, Orthopnea, PND, Shortness of breath Respiratory: Denies: Cough, Hemoptysis, Shortness of Breath, Wheezing Gastrointestinal:: Denies: Abdominal pain, Nausea, Vomiting, Diarrhea, Constipation, Hematochezia Genitourinary: Reports: - - Scheduled for elective urologic surgery in the upcoming few weeks at [facility]. Denies: Dysuria, Hematuria, Flank pain Musculoskeletal:: Denies: Back pain, Myalgia, Arthralgia Skin: Denies: Rash, Skin Changes, Wounds Neurological:: Denies: Headache, Dizziness, Visual changes, Tinnitus, Hearing loss Psychiatric: Denies: Anxiety, Depression, Homicidal Ideations, Suicidal Ideations Vital Signs Height 5 ft 4 in Weight: 62.142 kg Weight in Pounds 137.0 lbs BMI 23.8 Pulse Ox 99 - Physical Exam General: Alert, Oriented x3, No apparent distress, - - ECOG 0 HEENT: Atraumatic, PERRLA, EOMI, Normocephalic Oropharynx:: Dry mucosa Neck:: Supple, Trachea midline. Negative for: JVD, bilateral Cardiac:: Regular rate, Regular rhythm, Normal S1, Normal S2. Negative for: Murmur Lungs: Clear to auscultation, Excusion symmetrical. Negative for: Rhonchi, Wheezes Abdomen:: Bowel sounds x 4, Soft, Non-tender, Non-distended. Negative for: Hepatosplenomegaly Extremities:: Negative for: Cyanosis, Edema Neurological: Neuro grossly intact Skin:: Negative for: Lesions, Rash, Petechiae, Ecchymosis Psychiatric:: Appropriate affect, Euthymic Lymphatics:: Negative for: Cervical lymphadenopathy, Supraclavicular lymphadenopathy, Axillary lymphadenopathy Assessment and Plan 57-year-old female with squamous cell cancer of the anus with pathologically confirmed metastases to left inguinal lymph node, stage IIIb. HIV NEG . Received definitive combined chemoradiation with intent to cure and sparing the anal sphincter 07-12. Seen November 24, [address] Archer. She is in complete remission she will go on surveillance with: * GARRISON every 3-6 months for 5 years. * Inguinal lymph node assessment by palpation +/-ultrasound every 3-6 months for 5 years. * Ansocopy every 6-12 months for 3 years. Annual chest, abdomen and pelvis CT for 3 years, due February 2019. Last pelvic exam was by Dr. Sorto December 2017. She is scheduled for urologic surgery late May/early July 2018, to review pathology once available. Impression and plan discussed. Follow-up in 3 months Annual screening mammo to schedule Annual CT chest for screening for lung cancer 02/2019. Medications: Prescriptions This Visit Medication Instructions Recorded Ibuprofen [Motrin] 600 mg PO Q4H PRN PRN 07/02/17 Pentoxifylline [Trental] 400 mg PO TID #90 tab 01/19/18 Vitamin E 1,000 unit PO DAILY #60 cap 01/19/18 Primary Care Provider: [facility] Referring Provider: 06/14/18 1423 <Electronically signed by Juan Alvarez MD> Date Juan Alvarez MD Cosigner Signature: Date (if applicable) CC: SURGERY VISIT REPORT Observed: 03/20/2018 Status: F Source: AMBROSE 11:52 AM [facility] [address] [place] [address]. 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 [employer] Required: No Accompanied by: Is patient in pain?: No Allergies cyclobenzaprine [From Flexeril] Adverse Reaction (Severe, Verified 03/20/18 09:22) Hives Medications Multivitamin [Multiple Vitamins] 1 ea PO DAILY 06/17/17 [History Confirmed 03/20/18] Ibuprofen [Motrin] 600 mg PO Q4H PRN PRN 07/02/17 [History Confirmed 03/20/18] Pentoxifylline [Trental] 400 mg PO TID #90 tab 01/19/18 [Rx Confirmed 03/20/18] Vitamin E 1,000 unit PO DAILY #60 cap 01/19/18 [Rx Confirmed 03/20/18] PFSH Medical History PORT PLACEMENT (Acute) GERD (gastroesophageal reflux disease) (Acute) Ganglion cyst of dorsum of right wrist (Acute) Mucositis due to antineoplastic therapy (Resolved) Pancytopenia (Resolved) Stomatitis (Acute) Regional lymph node metastasis present (Chronic) Anal cancer (Chronic) Family History Father Heart disease Hyperlipidemia Hypertension Mother Heart disease Hyperlipidemia Hypertension Social History Smoking Status: Former smoker HPI HPI HPI: LYNNETTE JONES, is a 57 F who presents to the office today for Office Procedures Port/Cath Removal Provider Documentation Details:: Preoperative diagnosis: Squamous cell cancer of the anus Postoperative diagnosis: The same Procedure: Removal of right IJ [facility] Procedure: Right chest area was sterilely prepped and draped in usual fashion. 1% lidocaine plain was injected. Old incision was opened up. I dissected down to the catheter. Removed from the internal jugular vein without difficulty. Remove the port without difficulty. Remove the 2 stay sutures without difficulty. I brought the wound together with deep dermal stitches of 3-0 Vicryl. Steri-Strips were applied. Sterile dressings were applied. The patient tolerated the procedure well. Alert Strip Polisher Alert Billing: Yes Port/Peg [id number] Port Removal Procedure Time Out Time Out Informed consent given: Yes Consent signed: Yes Time out checklist: patient, procedure, site marked/identified, positioning of patient, supplies available, allergies confirmed, team agrees on procedure Time out staff in room: Yes Time out verified: Yes Time out date: 03/20/18 Time out time: 09:21 Assessment AND Plan Problems 1. Anal cancer C21.0 2. PORT PLACEMENT Orders Orders: Coding Level of Care Code No Charge Diagnoses Anal cancer C21.0 PORT PLACEMENT Additional Codes Port/Peg - Port/Pe Port Removal (45470) 03/20/18 1152 <Electronically signed by Bradley Archer MD> Date Bradley Archer MD Cosign Signature: Date (if applicable) CC: ONCOLOGY VISIT REPORT Observed: 03/18/2018 Status: F Source: SEGUN 10:18 AM [facility] [place] [place] [address] OFFICE VISIT Date of Service: 03/18/18 1004 MR#: [id number] Acct: [id number] Name: LYNNETTE JONES Rep #: [id number] : 1960 From: Juan Alvarez MD Age/Sex: 57/F Location: OMD Status: Signed - Problem List (1) Anal cancer Status: Chronic (2) Regional lymph node metastasis present Status: Chronic - Date of Service Date of Service:: 03/18/18 - Chief Complaint Anal cancer - History of Present Illness Patient is a 56-year-old female who over the course of the past 2 months or so has had an increasing sense of discomfort and fullness in the anal rectal area. Sometime later she felt an enlarged lymph node in the left groin which was confirmed on a CT scan of the abdomen and pelvis. On June 18, 2017 she underwent colonoscopy by Dr. Archer which revealed a mass lesion without ulceration extending from the anus into the rectum approximately 3 cm in length. An ultrasound-guided needle core biopsy from the left inguinal lymph node on June 19, 2017 revealed a metastatic squamous cell carcinoma. The patient otherwise has no known chronic medical illnesses. However she has been a smoker most of her adult life and consumes an average 12 pack of beer every week. 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 PET-CT initial staging on June 29, 2017 showed abnormal uptake confined to the anorectal area and the left groin. Treatment: 5400 cGy in 30 fractions to the primary anal tumor with a margin, 5040 cGy in 30 fractions to the left inguinal LN, and 4500 cGy in 30 fractions to the elective lymph node volumes including perirectal, pre-sacral, and bilateral inguinal and external/internal iliac nodes. The patient received concurrent chemotherapy with CIV 5-FU and MMC. Date of first treatment: 07/14/17 Date of last treatment: 08/26/17 - Past Medical/Social History Past Medical History Other Past Medical History: REFLUX Cancer: Rectal cancer Past Surgical History Other Surgical History: GANGLION CYST RIGHT WRIST Family History Paternal Past Medical History: Heart disease,Hyperlipidemia,Hypertension Maternal Past Medical History: Heart disease,Hyperlipidemia,Hypertension Social History Smoking Status Former smoker Review of Systems Constitutional:: Denies: Fever, Sweats, Weight loss, Appetite change, Chills Cardiovascular:: Denies: Chest pain, Palpitations, Dyspnea on exertion, Orthopnea, PND, Shortness of breath Respiratory: Denies: Cough, Hemoptysis, Shortness of Breath, Wheezing Gastrointestinal:: Denies: Abdominal pain, Nausea, Vomiting, Diarrhea, Constipation, Hematochezia Genitourinary: Denies: Dysuria, Hematuria, 15, Flank pain Musculoskeletal:: Denies: Back pain, Myalgia, Arthralgia Skin: Denies: Rash, Skin Changes, Wounds Neurological:: Denies: Headache, Dizziness, Visual changes, Tinnitus, Hearing loss Psychiatric: Denies: Anxiety, Depression, Homicidal Ideations, Suicidal Ideations Vital Signs Height 5 ft 4 in Weight: 62.596 kg Weight in Pounds 138.0 lbs BMI 23.8 Pulse Ox 100 - Physical Exam General: Alert, Oriented x3, No apparent distress HEENT: Atraumatic, PERRLA, EOMI, Normocephalic Oropharynx:: Dry mucosa Neck:: Supple, Trachea midline. Negative for: JVD, bilateral Cardiac:: Regular rate, Regular rhythm, Normal S1, Normal S2. Negative for: Murmur Lungs: Clear to auscultation, Excusion symmetrical. Negative for: Rhonchi, Wheezes Abdomen:: Soft, Non-tender, Non-distended. Negative for: Hepatosplenomegaly Extremities:: Negative for: Cyanosis, Edema Neurological: Neuro grossly intact Skin:: Negative for: Lesions, Rash, Petechiae, Ecchymosis Psychiatric:: Appropriate affect, Euthymic Lymphatics:: Negative for: Cervical lymphadenopathy, Supraclavicular lymphadenopathy, Axillary lymphadenopathy Diagnostic Data: CT scan chest abdomen and pelvis February 2018 no evidence to suggest metastatic disease and showed stable inguinal lymph nodes. 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 HIV NEG . Received definitive combined chemoradiation with intent to cure and sparing the anal sphincter 07-12. Well tolerated with expected side effects; including mucositis, pancytopenia and skin reaction to radiation. Seen November 24, [address] Archer. She is in complete remission she will go on surveillance with: * GARRISON every 3-6 months for 5 years. * Inguinal lymph node assessment by palpation +/-ultrasound every 3-6 months for 5 years. * Ansocopy every 6-12 months for 3 years. Annual chest, abdomen and pelvis CT for 3 years (will schedule summer 2017). * Impression and plan discussed. Follow-up in 3 months Annual screening mammo to schedule Annual CT chest for screening for lung cancer 02/2019. Medications: Prescriptions This Visit Medication Instructions Recorded Ibuprofen [Motrin] 600 mg PO Q4H PRN PRN 07/02/17 Pentoxifylline [Trental] 400 mg PO TID #90 tab 01/19/18 Vitamin E 1,000 unit PO DAILY #60 cap 01/19/18 Primary Care Provider: [facility] Referring Provider: 03/18/18 1018 <Electronically signed by Juan Alvarez MD> Date Juan Alvarez MD Cosigner Signature: Date (if applicable) CC: CREATININE FINGERSTICK Collected: 03/15/2018 Status: F Source: [facility] 2:42 PM [facility] REPOSITORY TYPE CODE TESTS RESULT OUT OF RANGE REFERENCE UNITS LAB L9100.0210 0.55-1.02 mg/dL Normal CREATININE WB 0.7 LAB L9100.0220 >60 mL/min EGFR WB Normal > 60.0000 Performed By: #### L9100.0200 #### [facility] Point of Care [address] [place] [address] CHEST WITH CONTRAST Observed: 03/15/2018 Status: F Source: [facility] 1:54 PM [facility] REPOSITORY [facility] Imaging Services [address] [place] [address] Chest WITH Contrast MR#: [id number] Acct: [id number] Name: LYNNETTE JONES Rep #: [id number] : 1960 F 57 From: Lizandro Ventura MD PCP: Care Physician, No Primary Status: REG CLI Study: Chest WITH Contrast Date of Exam: 03/15/18 Exam# [id number] Ordering Dr: Juan Alvarez MD STUDY: CT CHEST WITH CONTRAST REASON FOR EXAM: Female, 57 years old. ANAL CA-RAD TX RADIATION DOSAGE (If Supplied By Facility): CTDIvol = ( 12.40 ) mGy, DLP = ( 987.55 ) mGycm TECHNIQUE: Transaxial imaging was performed following intravenous administration of 100 ml of Isovue 300 contrast material. Individualized dose optimization techniques were used for this CT. COMPARISON: None. FINDINGS: There is a right Port-A-Cath and/or mediport in place. The tip is in the superior vena cava. There are emphysematous changes of the lungs with emphysematous blebs. There is no demonstrated pleural abnormality. There are calcifications of the coronary arteries. Normal mediastinum. Normal hilar regions. Normal enhanced pulmonary arteries. There is atherosclerotic tortuosity of the aortic arch and descending thoracic aorta. There are multi-level degenerative changes of the thoracic spine. There is no demonstrated abnormality of the visualized upper abdomen. CT/Chest WITH Contrast IMPRESSION: There are coronary arterial calcifications. No evidence for metastatic disease to the chest. Electronically Signed: Lizandro Ventura MD at 22:48 EDT , Service support , CC: No Primary Care Physician; Juan Alvarez MD Blueprint Developer: Signed ABDOMEN/PELVIS W IV CONT Observed: 03/15/2018 Status: F Source: [place] ONLY 1:54 PM [facility] REPOSITORY [facility] Imaging Services [address] [place] [id number] Abdomen/Pelvis W IV Cont ONLY MR#: [id number] Acct: [id number] Name: LYNNETTE JOENS Rep #: [id number] : 1960 F 57 From: Lizandro Ventura MD PCP: Care Physician, No Primary Status: REG CLI Study: Abdomen/Pelvis W IV Cont ONLY Date of Exam: 03/15/18 Exam# [id number] Ordering Dr: Juan Alvarez MD STUDY: CT ABDOMEN AND PELVIS WITH CONTRAST REASON FOR EXAM: Female, 57 years old. ANAL CA-RAD TX RADIATION DOSAGE (If Supplied By Facility): CTDIvol = ( 12.40 ) mGy, DLP = ( 987.55 ) mGycm TECHNIQUE: Transaxial images were obtained from the dome of the diaphragm to the symphysis pubis without oral contrast. 100 ml of Isovue 300 contrast was administered. Sagittal and coronal images were reconstructed. Individualized dose optimization techniques were used for this CT. COMPARISON: CTOct 2016 9:26am FINDINGS: The visualized lung bases are unremarkable. The visualized portions of the heart are within normal limits. There is a stable hypodensity in the left lobe of the liver. Normal gallbladder and extrahepatic biliary system. Normal spleen. Normal pancreas. Normal bilateral adrenal glands. Normal right kidney. Normal left kidney. Normal visualized stomach. Normal small intestine. Normal colon. The appendix is visualized and appears normal. There is diffuse atherosclerotic calcification of the abdominal aorta, without a demonstrated aneurysm. Normal inferior vena cava. Normal retroperitoneum. Normal urinary bladder. Normal visualized uterus. Normal abdominal wall. There are diffuse degenerative changes of the visualized lumbar spine. Loss of intervertebral disc height at L5-S1. Vacuum disc phenomenon at L5-S1. CT/Abdomen/Pelvis W IV Cont ONLY IMPRESSION: There is a stable hypodensity in the left lobe of the liver. Stable subcentimeter inguinal lymph nodes. Anal mass is not clearly appreciated. Electronically Signed: Lizandor Ventura MD at 22:51 EDT , Service support , CC: No Primary Care Physician; Juan Alvarez MD Blueprint Developer: Signed DOWNTIME REPORT Observed: 02/18/2018 Status: F Source: [facility] 12:22 PM [facility] REPOSITORY [facility] Medical Records Department [address] [place] [address] Downtime Report MR#: [id number] Acct: [id number] Name: LYNNETTE JONES Rep #: [id number] : 1960 57 From: Keaton Trevino PCP: Care Physician, No Primary Status: REG RCR This patient was seen during an EMR downtime February 01, 2018 - February 08, 2018. This patient may have a combination of paper and electronic documentation or all paper documentation. All documentation is viewable within the e-chart portion of [employer] for each patient visit. ONCOLOGY FOLLOW-UP Observed: 01/19/2018 Status: F Source: [facility] VISIT 2:21 PM [facility] Medical Records Department [address] [place] [address] Oncology Follow-Up Visit 01/19/18 1157 MR#: [id number] Acct: [id number] Name: LYNNETTE JONES Rep #: [id number] : 1960 57 From: Jason Sorto DO PCP: Care Physician, No Primary Status: REG RCR Y Location: [facility] Date of Service: 01/19/18 Last Clinic Visit: 09/22/17 Diagnosis: Lynnette Jones is a 56-year-old female who currently smokes diagnosed with AJCC version 7.0 Clinical Stage IIIB ([id number]) squamous cell carcinoma involving the anal canal and left groin status post CT scan of A/P with contrast (06/16/17), colonoscopy (06/18/17), core needle biopsy of the left groin (06/19/17), and PET scan (06/29/17). From 07/14/2017 through 08/26/2017 she received definitive concurrent chemoradiation consisting of dose painting IMRT delivering 5400 cGy in 30 fractions with concurrent continuous infusion 5- FU and mitomycin-C. History of Present Illness: The patient noticed a perianal mass in March 2017 which has been uncomfortable at times but has not resulted in obvious pain or any bleeding at all. Additionally she has noted a painless enlarged lymph node in the left groin. 06/15/2017: The patient was evaluated by Dr. Archer with [facility]. On exam there is noted to be a perianal mass in the left anterior aspect with the overlying anal mucosa appearing smooth but firm, the mass is not tender to the touch and there are no signs of abscess or fistula formation. There is noted to be an enlarged palpable lymph node in the left groin measuring approximately 2 cm in greatest diameter. 06/16/2017: CT scan of the abdomen and pelvis with contrast was performed and revealed a 1.7 cm simple cyst in the left lobe of the liver, a pathologically enlarged 2.3 x 1.7 cm left inguinal lymph node, and no other abnormality including no evidence of a rectal mass was noted. 06/18/2017: Patient underwent colonoscopy. Within the rectum there is no appearance of obvious visual lesions seen with retroflexion, however rectal exam does show a mass that goes from the anus into the rectum and is submucosal in nature and measures about 3 cm in length. The mass is described as firm and rubbery and there are no fungating masses within the mucosa of the rectum itself. There are no other lesions or abnormalities within the remainder of the colonoscopy including in the sigmoid colon, descending colon, transverse colon, ascending colon, or cecum. 06/19/2017: Ultrasound-guided needle core biopsy of the left inguinal lymph node was completed and pathology demonstrated metastatic squamous cell carcinoma. 06/29/17: PET scan was completed and showed focal increased metabolic uptake with an SUV of 9 within the lower pelvis contiguous to the distal rectal vault and anal verge, the abnormality measures 24.6 mm. There is asymmetric increased glucose concentration demonstrated in the left inguinal region in 2 separate nodular areas generating a calculated SUV of 6.7 and the maximal axial diameter of the largest most conspicuous soft tissue density is 20.8 mm. There is mild increased glucose metabolism defined in the right thoracic perihilum generating a calculated maximum SUV of 2.0 and this is not felt to be concerning for neoplasm. There is no evidence of metastatic disease or other abnormality. From 07/14/2017 through 08/26/2017 she received definitive concurrent chemoradiation consisting of dose painting IMRT delivering 5400 cGy in 30 fractions with concurrent continuous infusion 5-FU and mitomycin-C. 11/24/2017: Patient had follow-up with surgeon who performed digital rectal exam showing swelling but no discrete mass appreciated. Also documented is that the previously noted left inguinal lymphadenopathy was not apparent on exam. 12/14/2017: Patient was evaluated by medical oncology, laboratory data including CBC and CMP were unremarkable. Imaging including CT chest abdomen pelvis was ordered to be completed in February. Radiation Treatment History: 1) From 07/14/2017 through 08/26/2017 she received definitive concurrent chemoradiation consisting of dose painting IMRT delivering 5400 cGy in 30 fractions with concurrent continuous infusion 5-FU and mitomycin-C. No pacemaker, no history of collagen vascular disease. Interval History: Lynnette Jones returns for follow-up about 5 months after completing definitive chemoradiation therapy for anal cancer. Patient does report doing fairly well overall. However she has been experiencing discomfort with sexual intercourse and feels like there is a sore on the anterior aspect of the vagina. She has seen a order filler twice and Pap smear was completed, and we are trying to obtain these outside records for review. She reports that the soreness has been ongoing for the last several months and that it only occurs during intercourse and she does not feel this at any other time. She denies any vaginal bleeding or discharge, denies itchiness or other associated symptoms. She also believes that she has plenty of vaginal lubrication without using a lubricant. She denies having any urinary frequency, dysuria, hematuria, or other problems with urination. She reports having regular bowel movements about once per day and that these are usually formed or loose but denies having diarrhea. She denies having rectal/anal pain and she denies having any rectal bleeding or irritation with bowel movements. She denies having any new lymphadenopathy denies any skin changes in the anal area or groin. She has had a couple instances of discomfort in the left groin which has caused minimal bother and resolved on its own, she does not take any pain medication for this. She denies having any lymphedema or numbness/weakness in her legs. She reports having a normal energy and is back to work full-time without difficulty. I have reviewed the medical, surgical, and other pertinent history in details and have updated medication and allergy information in the electronic medical record. Review of Systems: A 12-point review of systems was completed and was negative except for what is noted in the HPI/Interval History and by the nurse. Height/Weight/BMI: Height: 5 ft 4 in Weight: 63.049 kg BMI: 23.8 Vital Signs Temperature 97.9 F 01/19/18 10:59 Temperature Source Oral 01/19/18 10:59 Pulse Rate 67 01/19/18 10:59 Respiratory Rate 16 01/19/18 10:59 Physical Exam: ECO KARNOFSKY SCORE: 100 CONSTITUTIONAL: Well-developed, well-nourished, and in no apparent distress. HEENT: Mucous membranes moist. No evidence of thrush or lesions within the visualized oropharynx or oral cavity. No trismus. Pupils are equal, round, and reactive to light and accommodation. Extraocular movements are intact. Sclerae are anicteric. NECK: Supple,with no thyromegaly, and non-tender. Trachea midline. No cervical or supraclavicular adenopathy noted. CARDIAC: Regular rate and rhythm. Normal S1, S2. No murmurs, rubs, or gallops. PULMONARY/CHEST: Lungs are clear to auscultation and percussion bilaterally. No wheezes, rhonchi, or crackles noted. No increased work of breathing. ABDOMINAL: Abdomen soft, non-tender, non-distended. No hepatomegaly. Normoactive bowel sounds in all four quadrants. No guarding, rebound. GARRISON: Perianal skin has healed well without any desquamation or erythema. The anal canal mucosa is smooth without nodularity, there is no apparent mass noted. BEDSPREAD CUTTER HAND: External genitalia normal in appearance with some mild swelling. Bimanual exam and speculum exam were performed. Exam was without pain in the vaginal canal other than a small area of pain at the anterior wall of the vagina with palpation. In this area there was about a 3 mm erythematous rough area of possible ulceration, no evidence of bleeding. There were no other palpable asymmetries or lesions, the cervix was palpated and also felt normal without lesions. BACK: Straight and aligned. No CVA tenderness. Axial skeleton non-tender to percussion. EXTREMITIES: Full range of motion in all four extremities, with normal strength equally and symmetrically. No evidence of edema. No clubbing. PSYCHIATRIC: Appropriate mood and affect for the clinical situation. Imaging: No new imaging to review Laboratory Data: 12/14/2017: CBC and CMP completed and unremarkable Assessment: Lynnette Jones is a 56-year-old female who currently smokes diagnosed with AJCC version 7.0 Clinical Stage IIIB ([id number]) squamous cell carcinoma involving the anal canal and left groin status post CT scan of A/P with contrast (06/16/17), colonoscopy (06/18/17), core needle biopsy of the left groin (06/19/17), and PET scan (06/29/17). From 07/14/2017 through 08/26/2017 she received definitive concurrent chemoradiation consisting of dose painting IMRT delivering 5400 cGy in 30 fractions with concurrent continuous infusion 5- FU and mitomycin-C. Plan: Lynnette Jones returns for a routine 5 month follow-up after completing definitive chemoradiation therapy for anal cancer. Clinically she is doing well other than persistent sore on the anterior vaginal wall causing discomfort with intercourse. On exam there is no evidence of disease within the left groin or anal canal. There is an approximately 3 mm rough ulcerated area in the anterior vaginal canal. We are obtaining the outside records from her new order filler and she has been referred to specialist for further evaluation. I believe this could be related to the previous radiation therapy and that she may have persistent difficulty of healing in this area, I will attempt Trental and vitamin E trial. I recommended that she completely cease smoking. She continues to be evaluated by her surgeon Dr. Archer who evaluated her in late October and found no evidence of disease, he is going to see her again in February and he will also complete ultrasound of the groin to ensure resolution of her lymph nodes there. She is scheduled to have CT chest abdomen and pelvis in February, as recommended by medical oncology. I will plan to see her in May to continue alternating visits with Dr. Archer. She will also plan to contact me if this very small sore in the vaginal canal does not begin to heal within the next 4-6 weeks, or if it begins to worsen. She was instructed to call with any further questions or concerns in the interim. Health Maintenance: Recommend health well-balanced diet as well as persistent cardiovascular exercise program to maintain healthy weight and maximally reduce risk of disease recurrence. Recommend colonoscopy for colorectal cancer screening. Recommend that she continue gynecologic screening. Follow up with PCP regarding all other medical problems. Jason Sorto DO, MS [employer], Department of Radiation Oncology [facility] 01/19/18 1421 <Electronically signed by Jason Sorto DO> Date Jason Sorto CC: Signed ONCOLOGY VISIT REPORT Observed: 12/14/2017 Status: F Source: [facility] 1:57 PM [facility] REPOSITORY [facility] [place] [address] OFFICE VISIT Date of Service: 12/14/17 1318 MR#: [id number] Acct: [id number] Name: LYNNETTE JONES Rep #: [id number] : 1960 From: Juan Alvarez MD Age/Sex: 56/F Location: [facility] Status: Signed - Problem List (1) Anal cancer Status: Chronic (2) Regional lymph node metastasis present Status: Chronic - Date of Service Date of Service:: 12/14/17 - Chief Complaint Anal cancer follow-up - History of Present Illness Patient is a 56-year-old female who over the course of the past 2 months or so has had an increasing sense of discomfort and fullness in the anal rectal area. Sometime later she felt an enlarged lymph node in the left groin which was confirmed on a CT scan of the abdomen and pelvis. On June 18, 2017 she underwent colonoscopy by Dr. Archer which revealed a mass lesion without ulceration extending from the anus into the rectum approximately 3 cm in length. An ultrasound-guided needle core biopsy from the left inguinal lymph node on June 19, 2017 revealed a metastatic squamous cell carcinoma. The patient otherwise has no known chronic medical illnesses. However she has been a smoker most of her adult life and consumes an average 12 pack of beer every week. 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 PET-CT initial staging on June 29, 2017 showed abnormal uptake confined to the anorectal area and the left groin. Treatment: 5400 cGy in 30 fractions to the primary anal tumor with a margin, 5040 cGy in 30 fractions to the left inguinal LN, and 4500 cGy in 30 fractions to the elective lymph node volumes including perirectal, pre-sacral, and bilateral inguinal and external/internal iliac nodes. The patient received concurrent chemotherapy with CIV 5-FU and MMC. Date of first treatment: 07/14/17 Date of last treatment: 08/26/17 - Past Medical/Social History Past Medical History Other Past Medical History: REFLUX Cancer: Rectal cancer Past Surgical History Other Surgical History: GANGLION CYST RIGHT WRIST Family History Paternal Past Medical History: Heart disease,Hyperlipidemia,Hypertension Maternal Past Medical History: Heart disease,Hyperlipidemia,Hypertension Social History Smoking Status Current every day smoker Review of Systems Constitutional:: Reports: - - Has a head cold with congestion and discharge. Denies: Fever, Sweats, Weight loss, Appetite change, Chills Cardiovascular:: Denies: Chest pain, Palpitations, Dyspnea on exertion, Orthopnea, PND, Shortness of breath Respiratory: Reports: Cough, Sputum production - Clear. Denies: Hemoptysis, Shortness of Breath, Wheezing Gastrointestinal:: Denies: Abdominal pain, Nausea, Vomiting, Diarrhea, Constipation, Hematochezia Genitourinary: Reports: - - To see urogynecology for vaginal/urethral irritation. Denies: Dysuria, Hematuria, Flank pain Musculoskeletal:: Denies: Back pain, Myalgia, Arthralgia Skin: Denies: Rash, Skin Changes, Wounds Neurological:: Denies: Headache, Dizziness, Visual changes, Tinnitus, Hearing loss Psychiatric: Denies: Anxiety, Depression, Homicidal Ideations, Suicidal Ideations Vital Signs Height 5 ft 4 in Weight: 63.049 kg Weight in Pounds 139.0 lbs BMI 23.8 Pulse Ox 97 - Physical Exam General: Alert, Oriented x3, No apparent distress Cardiac:: Negative for: Murmur Abdomen:: Negative for: Hepatosplenomegaly Laboratory Data: BMP pending Assessment and Plan 56-year-old female with 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 HIV NEG . Received definitive combined chemoradiation with intent to cure and sparing the anal sphincter 07-12. Well tolerated with expected side effects; including mucositis, pancytopenia and skin reaction to radiation. Seen November 24, [address] Archer. She is in complete remission she will go on surveillance with: * GARRISON every 3-6 months for 5 years. * Inguinal lymph node assessment by palpation +/-ultrasound every 3-6 months for 5 years. * Ansocopy every 6-12 months for 3 years. Annual chest, abdomen and pelvis CT for 3 years (will schedule summer 2017). Medications: Prescriptions This Visit Medication Instructions Recorded Ibuprofen [Motrin] 600 mg PO Q4H PRN PRN 07/02/17 Lidocaine/Prilocaine 30 gm TP DAILY PRN PRN #1 cream..g. 07/06/17 [Lidocaine-Prilocaine Cream] Primary Care Provider: No Primary Care Phys Referring Provider: 12/14/17 1357 <Electronically signed by Juan Alvarez MD> Date Juan Alvarez MD Cosigner Signature: Date (if applicable) CC: Bradley Archer MD CBC W/DIFF, AUTOMATED Collected: 12/14/2017 Status: F Source: [place] 1:12 PM [facility] REPOSITORY Order Comment: Reason for Laboratory Test FOLLOW UP TYPE CODE TESTS RESULT OUT OF RANGE REFERENCE UNITS LAB L100.1000 4.4-11.0 K/mm3 Normal WBC 6.0 LAB L100.1200 4.2-5.4 M/mm3 Low RBC 3.86 LAB L100.1300 12.0-15.0 g/dl Normal HGB 12.7 LAB L100.1400 37-47 % Normal HCT 38.7 LAB L100.1500 81-99 fL High MCV 100.3 LAB L100.1600 27.0-32.0 pg High MCH 32.9 LAB L100.1700 32-36 g/gl Normal MCHC 32.8 LAB L100.1810 11.6-14.6 % Normal RDW CV 12.2 LAB L100.1820 35.1-43.9 fl High RDW SD 44.2 LAB L100.1900 150-450 K/mm3 Normal PLT 192 LAB L100.2000 6.2-12.0 fl Normal MPV 8.3 LAB L100.2100 47-70 % Normal NEUT% 60.6 LAB L100.2200 19-41 % Low LY% 14.9 LAB L100.2300 0-10 % High MONO% 18.3 LAB L100.2400 0-5 % High EO% 5.7 LAB L100.2500 0-1 % Normal BASO% 0.3 LAB L100.2550 0.0-0.9 % Normal IM GRAN % 0.200 Result Comment: IG% - Immature Granulocytes (promyelocytes, myelocytes and metamyelocytes) > 1% indicates that a LEFT SHIFT is Present. LAB L100.2620 2.0-7.7 X10 3/uL Normal Absolute Neut 3.6 LAB L100.2720 0.83-4.51 X10 3/ul Normal Absolute Lymph 0.89 Performed By: #### L100.0100 #### [facility] [address] [place], [address] COMPREHENSIVE METABOLIC Collected: 12/14/2017 Status: F Source: [facility] 1:12 PM [facility] REPOSITORY Order Comment: Reason for Laboratory Test FOLLOW UP TYPE CODE TESTS RESULT OUT OF RANGE REFERENCE UNITS LAB L501.0100 74-106 mg/dL Normal GLU 89 Result Comment: Please note revised GLUCOSE reference range effective 2017. LAB L501.1000 7-18 mg/dL Normal BUN 14 LAB L501.1100 0.55-1.02 mg/dL Normal CREAT,SERUM 0.56 Result Comment: The validity of the calculated GFR AND GFRAA in patients over 70 years has not been determined. Clinical correlation is essential. LAB L501.1110 >60 mL/min Normal EST GFR 119 Result Comment: Non- GFR Calc LAB L501.1115 >60 mL/min Normal EST GFR - AA 144 Result Comment: GFR Calc LAB L501.1255 ml/min Normal Estimated CRCL 96.86 LAB L501.1300 10-20 RATIO High BUN/CRE 25.1 LAB L501.1500 6.4-8. g/dL Normal 2 T PROT 7.3 LAB L501.1800 3.2-5. g/dL Normal 0 ALB 3.6 LAB L501.1950 2.2-4. g/dL Normal 2 GLOB 3.7 LAB L501.2000 0.9-2. RATIO Normal 4 A/G 1.0 LAB L501.2200 8.5-10 mg/dL Normal .1 CA 8.6 LAB L501.4100 15-37 U/L Normal AST 20 LAB L501.4305 45-117 U/L Normal ALK P 101 LAB L501.4405 13-56 U/L Normal ALT 27 LAB L501.4600 0.20-1 mg/dL Low .00 T BILI 0.10 LAB L501.5300 136-14 mmol/L Normal 5 NA 137 LAB L501.5600 3.5-5. mmol/L Normal 1 K 4.1 LAB L501.5900 98-107 mmol/L Normal CL 105 LAB L501.6100 21.0-3 mmol/L Normal 2.0 CO2 27.0 LAB L501.6200 5-15 Normal GAP 5 Performed By: #### L500.4050 #### [facility] [address] 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 From 07/14/2017 through 08/26/2017 she received definitive concurrent chemoradiation consistent of dose painting I am RT delivering 54 centigrade in 30 fractions with concurrent continuous infusions of 5-FU and mitomycin- C. She presents to my office today for further follow-up. Exam GI Other: Perianal exam still shows a lot of swelling in the area. There is no definitive mass palpated. In her groin there is complete resolution of the enlarged lymph node that was present and clinically I cannot feel any abnormalities there. Assessment AND Plan Problems 1. Anal cancer C21.0 2. Regional lymph node metastasis present C77.9 Plan I believe is important that I see her back every 3 months perform a digital rectal exam on her. In addition I think it is probably buck for us to obtain an ultrasound of the left inguinal area so that we can have an accurate monitoring of the lymph node in question. If the ultrasound showed that the lymph node is enlarging than it might make sense to obtain a repeat PET scan. If digital rectal exam does not reveal any abnormalities within the anal canal I do not think that there is much use in obtaining a anal rectal ultrasound. Coding Level of Care Code Off vis,est,level 2 Diagnoses Anal cancer C21.0 Regional lymph node metastasis present C77.9 12/03/17 1141 <Electronically signed by Bradley Archer MD> Date Bradley Archer MD Cosigner Signature: Date (if applicable) CC: Jason Sorto DO ALLERGIES ALLERGIES DATE TYPE / CODE NAME / CODE REACTION SEVERITY SOURCE 09/15/2018 Drug cyclobenzapr Hives SV [facility] Allergy/4160 ine/[id number] Hospital 27987(SNOMED 80(RXNORM) Repository CT) ENCOUNTERS ENCOUNTERS ADMIT/DISCHARGE ACCOUNT NUMBER ADMITTING ENCOUNTER LOCATION SOURCE CLASS 09/15/2018 [id number] Ambulatory BMSBuilding: [place] BMS.CF.[facility] Repository 09/15/2018 [id number] Ambulatory [facility] ding:OMD Repository 08/18/2018/08/18/20 [id number] Ambulatory BMSBuilding: [place] 18 BMS.CF.[facility] Repository 08/18/2018/08/18/20 [id number] Ambulatory [address] ding:SDCRoom Repository : AC01 08/04/2018/08/04/20 [id number] Ambulatory BMSBuilding: [place] 18 BMS.[facility] Repository 07/01/2018 [id number] Ambulatory [address] [place] [address]: System [id number]: Repository [id number] 06/25/2018 [id number] Ambulatory [facility] Repository 06/19/2018 [id number] Ambulatory [facility] ding:OPBI Repository 06/14/2018 [id number] Ambulatory BMSBuilding: [place] BMS.CF.[facility] Hospital Repository 06/14/2018 [id number] Ambulatory BMSBuilding: [place] BMS.CF.[facility] Hospital Repository 03/20/2018/03/20/20 [id number] Ambulatory BMSBuilding: [place] 18 BMS.[facility] Repository 03/18/2018 [id number] Ambulatory BMSBuilding: [place] BMS.CF.[facility] Repository 03/15/2018 [id number] Ambulatory [facility] ding:CT Repository 01/19/2018 [id number] Ambulatory BMSBuilding: [place] BMS.CF.[facility] Hospital Repository 12/14/2017 [id number] Ambulatory BMSBuilding: [place] BMS.CF.[facility] Hospital Repository 11/24/2017/11/25/19 [id number] Ambulatory BMSBuilding: [place] 18 BMS.[facility] Repository 11/23/2017 [id number] Ambulatory BMSBuilding: [place] BMS.[facility] Repository PAYERS PAYERS ENCOUNTER GUARANTOR PAYER SUBSCRIBER SOURCE 09/15/2018 LYNNETTE L [id number] Primary LYNNETTE L JANASDOB: [place] Insurance:ANTHEMPolic [id number] [facility] [place] Number: [facility] [address]Suj: (330) [id number] Repository [phone] () Date:8468-59-58Tf [address] [place] [address] 48[address]NF: 09/15/2018 Secondary NOT GIVENUNK [place] Insurance:SELF PAY [facility] Number: Effective Repository Date:2018-09-15 09/15/2018 LYNNETTE L [id number] Primary LYNNETTE L JANASDOB: [place] Insurance:ANTHEMPolic [id number] [facility] [place] Number: [facility] [address]Mtd: (330) [id number] Repository [phone] () Date:3992-62-02Ih [address], [place] [address]VY: 09/15/2018 Secondary NOT GIVENUNK [place] Insurance:SELF PAY [facility] Number: Effective Repository Date:2017-06-24 08/18/2018 LYNNETTE L [id number] Primary LYNNETTE L JANASDOB: [place] Insurance:ANTHEMPolic [id number] [facility] [place] Number: [facility] [id number]: (330) [id number] Repository [phone] () Date:2916-85-12Ht [address], [place] [address]SR: 08/18/2018 Secondary NOT GIVENUNK [place] Insurance:SELF PAY [facility] Number: Effective Repository Date:2018-08-18 08/18/2018 LYNNETTE L [id number] Primary LYNNETTE L JANKATHERYNDOB: [place] Insurance:ANTHEMPolic [id number] [place] Number: [facility] [address]Cve: (330) [id number] Repository [phone] () Date:1022-43-78Fj [address] [place] [address]LL: 08/18/2018 Secondary NOT GIVENUNK [place] Insurance:SELF PAY [facility] Number: Effective Repository Date:2018-08-04 08/04/2018 LYNNETTE L [id number] Primary LYNNETTE L HEBERDOB: [place] Insurance:ANTHEMPolic [id number] [facility] [place] Number: [facility] [id number]: (330 [id number] Repository [phone] () Date:5205-51-49Xv[address] [address]VC: 08/04/2018 Secondary NOT GIVENUNK [place] Insurance:SELF PAY [facility] Number: Effective Repository Date:2018-08-03 07/01/2018 Lynnette L PaoloB: Primary Lynnette L HeberDOB: [employer] ret[employer]inga Sulia [id number] Insurance:[place] [employer] [id number] System [employer] Repository [facility] Number: [place] [address]Ocl: Effective Date: (HP) 06/25/2018 Lynnette L HeberDOB: Primary Lynnette L HeberDOB: [employer] [facility] [id number] Insurance:[place] [employer] [id number] System [employer] Repository [facility] Number[facility] [place] [address]Tdw: Effective Date: (HP) 06/19/2018 LYNNETTE L [id number] Primary NOT GIVENUNK [place] Insurance:SELF PAY [facility] [place] [facility] [address]Vah: (330) Number: Effective Repository [phone] (HP) Date:2018-05-25 06/14/2018 LYNNETTE L [id number] Primary LYNNETTE L JANASDOB: [place] Insurance:ANTHEMPolic [id number] [place] Number: Hospital [id number]: (330) [id number] Repository [phone] (HP) Date:1590-17-32Mk [address]g, [place] [address]DY: 06/14/2018 Secondary NOT GIVENUNK [place] Insurance:SELF PAY Community [facility] Number: Effective Repository Date:2018-06-14 06/14/2018 LYNNETTE L [id number] Primary LYNNETTE L JANASDOB: [place] Insurance:ANTHEMPolic [id number] [facility] [place] Number: [facility] [address]Fff: (330) [id number] Repository [phone] () Date:5323-37-77Au [address], [place] [address]CZ: 06/14/2018 Secondary NOT GIVENUNK [place] Insurance:SELF PAY Community [facility] Number: Effective Repository Date:2018-06-14 03/20/2018 LYNNETTE L [id number] Primary LYNNETTE L JANASDOB: [place] Insurance:ANTHEMPolic [id number] [facility] [place] Number: Hospital [address]Sld: (330) [id number] Repository [phone] () Date:4556-50-96Lh [address], [place] [address]SS: 03/20/2018 Secondary NOT GIVENUNK [place] Insurance:SELF PAY [facility] Number: Effective Repository Date:2018-03-16 03/18/2018 LYNNETTE L [id number] Primary LYNNETTE L JANASDOB: [place] Insurance:ANTHEMPolic [id number] [facility] [place] Number: Hospital [address]Wsi: (330) [id number] Repository [phone] () Date:2156-08-44Nf [address], [place] [address]NP: 03/18/2018 Secondary NOT GIVENUNK [place] Insurance:SELF PAY [facility] Number: Effective Repository Date:2018-03-18 03/15/2018 LYNNETTE L [id number] Primary LYNNETTE L JANASDOB: [place] Insurance:ANTHE[employer]olic [id number] [place] Number: Hospital [address]Fmg: (330) [id number] Repository [phone] () Date:1277-10-62Vk [address] [place] [address]DA: 03/15/2018 Secondary NOT GIVENUNK [place] Insurance:SELF PAY [facility] Number: Effective Repository Date:2017-12-21 01/19/2018 LYNNETTE L [id number] Primary LYNNETTE L JANASDOB: [place] Insurance:ANTHE[employer]olic [id number] [place] Number: Hospital [address]Iec: (330) [id number] Repository [phone] () Date:2572-28-13Wg [address] [place] [address]PN: 01/19/2018 Secondary NOT GIVENUNK [place] Insurance:SELF PAY [facility] Number: Effective Repository Date:2018-01-19 12/14/2017 LYNNETTE L [id number] Primary LYNNETTE L JANASDOB: [place] Insurance:ANTHEMPolic [id number] [facility] [place] Number: Hospital [id number]: (330) [id number] Repository [phone] () Date:3878-70-63Cn [address] [place] [address]KU: 12/14/2017 Secondary NOT GIVENUNK [place] Insurance:SELF PAY [facility] Number: Effective Repository Date:2017-12-14 11/24/2017 LYNNETTE L [id number] Primary LYNNETTE L JANASDOB: [place] Insurance:[employer]HE[employer]olic [id number] [place] Number: Hospital [address]Fuh: (330 [id number] Repository [phone] () Date:8960-94-94Pu [address], [place] [address]MR: 11/24/2017 Secondary NOT GIVENUNK [place] Insurance:SELF PAY [facility] Number: Effective Repository Date:2017-11-24 11/23/2017 LYNNETTE [id number] Primary LYNNETTE PAOLOB: [place] Insurance:ANTHEMPolic [id number] Sloan Kettering Cancer CenterDOWORTHINGTON MEDICAL CENTERJOJOBalbinamober[facility] Number: [facility] [address]Jmu: 330 [id number] Repository [phone] () Date:9146-98-43Ie [address], [place] [address]LD: 11/23/2017 Secondary NOT GIVENUNK [place] Insurance:SELF PAY [facility] Number: Effective Repository Date:2017-09-17
== END 2018-08-18 12:16 | disposition home or self-care (01) ==
LOC: SDC 08:52 → AC 08:53
PROVIDERS: Referring Provider Surgery; Visit Provider Surgery
PROC: (CPT 45990; principal; 2018-08-18 10:45)
DX: C21.0 Malignant neoplasm of anus, unspecified (principal); C77.9 Secondary and unspecified malignant neoplasm of lymph node, unspecified; Z87.891 Personal history of nicotine dependence
CPT/HCPCS: 45990; J7120

== ENCOUNTER → 2019-05-09 13:07 | Outpatient (CLI) | payer BC, SELFPAY ==
[2018-06-14 14:45] VITALS: BMI 24.6
[2018-12-27 13:34] VITALS: BMI 25.5
--- NOTE | 2019-05-09 13:09 | CT_ITS ---
STUDY: CT CHEST WITH CONTRAST REASON FOR EXAM: Female, 58 years old. Anal cancer follow-up RADIATION DOSAGE (If Supplied By Facility): CTDIvol = ( 9.98 ) mGy, DLP = ( 810.18 ) mGycm TECHNIQUE: Transaxial imaging was performed following intravenous administration of 100 IV Isovue 300. Individualized dose optimization techniques were used for this CT. COMPARISON: 15 March 2018 FINDINGS: There are minimal stable scattered calcified and noncalcified granulomata. There are no pulmonary metastases.. Pleural surfaces are intact. Central airways are patent. Mediastinal contents are normal. Cardiac changes are normal in size and shape. There is moderate coronary artery disease. Aorta and pulmonary artery are unremarkable. There are age related degenerative changes in the lower cervical and thoracic spine with patent canal. Appearance is similar to prior. CT/Chest WITH Contrast IMPRESSION: 1. No thoracic metastatic disease. 2. Moderate coronary artery disease. Electronically Signed: Kathleen Taylor, at 17:06 EDT Tel , Service support ,
--- NOTE | 2019-05-09 13:09 | CT_ITS ---
STUDY: CT ABDOMEN AND PELVIS WITH CONTRAST REASON FOR EXAM: Female, 58 years old. A normal carcinoma follow-up RADIATION DOSAGE (If Supplied By Facility): CTDIvol = ( 9.98 ) mGy, DLP = ( 810.18 ) mGycm TECHNIQUE: CT images were obtained from the dome of the diaphragm to the symphysis pubis without oral contrast. 100 IV Isovue 300 was administered. Sagittal and coronal images were reconstructed. Individualized dose optimization techniques were used for this CT. COMPARISON: 15 March 2018 FINDINGS: The visualized lung bases are unremarkable. The visualized portions of the heart are within normal limits. There are no solid hepatic lesions. There is a simple hepatic cyst. Normal gallbladder and extrahepatic biliary system. Normal spleen. Normal pancreas. Normal bilateral adrenal glands. Normal right kidney. Normal left kidney. There is no intestinal obstruction. There is no discrete and rectal mass. There are possibly post radiation perirectal fat changes. Presacral space is clear. There is no perirectal, retroperitoneal or abdominal lymphadenopathy. Normal abdominal aorta. Normal inferior vena cava. Normal retroperitoneum. Normal urinary bladder. Normal abdominal wall. Normal osseous structures. CT/Abdomen/Pelvis W IV Cont ONLY IMPRESSION: 1. Unremarkable CT abdomen. 2. No abdominal neoplastic disease. Electronically Signed: Kathleen Taylor, at 18:15 EDT Tel , Service support ,
[2019-05-09 13:41] LABS: CREATININE FINGERSTICK 0.8 mg/dL (0.55-1.02)
== END ==
PROVIDERS: Referring Provider Internal Medicine Hematology & Oncology; Visit Provider Internal Medicine Hematology & Oncology
DX: C21.0 Malignant neoplasm of anus, unspecified (principal); C77.9 Secondary and unspecified malignant neoplasm of lymph node, unspecified; I25.10 Atherosclerotic heart disease of native coronary artery without angina pectoris
CPT/HCPCS: 71260; 74177; Q9967

== ENCOUNTER → 2019-08-08 18:07 | Outpatient (CLI) | payer BC, SELFPAY ==
[2018-06-14 14:45] VITALS: BMI 24.6
[2019-08-08 15:44] VITALS: BMI 25.3
[2019-08-12 17:06] LABS: HPV APTIMA, High Risk Positive (Negative)
== END ==
PROVIDERS: Referring Provider Obstetrics & Gynecology; Visit Provider Obstetrics & Gynecology
DX: Z12.4 Encounter for screening for malignant neoplasm of cervix (principal)
CPT/HCPCS: 87624; 88175; G0145

== ENCOUNTER → 2019-08-22 15:50 | Outpatient (CLI) | payer BC, SELFPAY ==
[2018-06-14 14:45] VITALS: BMI 24.6
[2019-08-08 15:44] VITALS: BMI 25.3
--- NOTE | 2019-08-22 15:51 | BI_ITS ---
MAMMOGRAPHY - BILATERAL SCREENING 3-D TOMOSYNTHESIS REASON FOR EXAM: Female, 58 years old. NO FAM HX NO PREV BREAST SX RT PORT SCAR AND CURRENT HEMATOMA PORT WAS REMOVED IN PERTINENT HISTORY: No significant family history. TECHNIQUE: 2-D mammograms and 3-D Tomosynthesis of the breast (s) were performed. CAD was performed. COMPARISON: 06/19/2018 FINDINGS: The breast composition is heterogeneously dense that can obscure small breast masses. Scattered benign calcifications are seen. No dense spiculated masses or suspicious microcalcifications are identified. No architectural distortion is identified. There is no skin thickening or retraction. There has been no significant change since the prior study. BI/SCREEN MAMM (CAD) W/LINDA BILAT IMPRESSION: No mammographic signs of malignancy. Routine yearly mammograms recommended. ASSESSMENT CATEGORY: BIRADS Category 1: Negative. A letter regarding these results will be sent to the patient by the facility within 30 days. FOLLOW UP RECOMMENDATION: Yearly follow up mammogram recommended. (A) Approximately 10% of breast cancers are not detected by mammography. A normal mammogram should not delay biopsy of a clinically suspicious abnormality. Electronically Signed: Stephane Gar MD at 14:43 EST Tel [phone], Service support ,
== END ==
PROVIDERS: Referring Provider Obstetrics & Gynecology; Visit Provider Obstetrics & Gynecology
DX: Z12.31 Encounter for screening mammogram for malignant neoplasm of breast (principal)
CPT/HCPCS: 77063; 77067

== ENCOUNTER 2020-03-28 06:26 | Day surgery (SDC) | payer BC, SELFPAY ==
[2018-06-14 14:45] VITALS: BMI 24.6
[2020-01-10 09:02] VITALS: BMI 25.9
[2020-03-27 13:15] LABS: Probe Check PASS; Specimen Processing Control PASS
[2020-03-28 06:49] VITALS: BP 129/94; PULSE 74; RESP 16; TEMP 37.2; O2SAT 98; BMI 23.6
[2020-03-28] MEDS: Lactated Ringers 1,000 ML 100 ML IV (07:02)
--- NOTE | 2020-03-28 07:05 | HP.PCM_ITS ---
History and Physical Date of Admission: 03/28/20 [facility] [address] [place], [place] [id number] MR#: [id number] Acct: [id number] Name: IVANA BUCK Rep #: [id number] : 1960 Provider: Dr. 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 Required: No Is patient in pain?: No Allergies cyclobenzaprine [From Flexeril] Allergy (Severe, Verified 01/10/20 09:02) Hives Medications Multivitamin [Multiple Vitamins] 1 ea PO DAILY 06/17/17 [History Confirmed 01/10/20] Vitamin E 1,000 unit PO DAILY #60 cap 01/19/18 [Rx Confirmed 01/10/20] PFSH Medical History GERD (gastroesophageal reflux disease) (Acute) Mucositis due to antineoplastic therapy (Resolved) Pancytopenia (Resolved) Stomatitis (Acute) Regional lymph node metastasis present (Chronic) Anal cancer (Chronic) Surgical History PORT PLACEMENT (Acute) Ganglion cyst of dorsum of right wrist (Acute) Family History Father Heart disease Hyperlipidemia Hypertension Mother Heart disease Hyperlipidemia Hypertension Social History Smoking Status: Light Smoker (<10/day) alcohol intake: current details: occasionally substance use type: does not use caffeine: Yes what type of physical activity do you participate in: none seatbelt use: always do you feel safe at home: Yes additional social history: [id number] 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 Patient last had a colonoscopy in 2017 was diagnosed with anal cancer at that time is subsequently undergone radiation treatment and is done quite well she presents today for a another colonoscopy. ROS General General: No weight change, appetite, fatigue, colon cancer, breast cancer or weakness HEENT HEENT: No difficulty swallowing, eye injury, eye surgery, swollen glands or hoarseness Endo Endocrine: No thyroid disease, diabetes mellitus, thyroid cancer, Hair loss, heat intolerance or cold intolerance Skin Skin: No rash or changing moles Breast Breast: No left breast lump, right breast lump, nipple discharge, breast pain, abnormal mammogram, abnormal US or breast enlargement Musc Musculoskeletal: No back problems, arthritis, rheumatoid arthritis, gout or avtar nt pain Cardio Cardiovascular: No murmur, pacemaker, heart disease, atrial fibrillation, high blood pressure, heart attack, heart stent, palpitations, shortness of breat with exertion or chest pain Psych Psychiatric: No depression, anxiety or hearing voices Resp Respiratory: No shortness of breath, No sleep apnea, No cough, No COPD, No asthma, No emphysema, No wheezing Gastro Gastrointestinal: No abdominal pain, No nausea or vomiting, Yes diarrhea, No constipation, No blood in stool, No acid reflux, Yes hemorrhoids, No ulcers, No gallbladder problem, No black,tarry stools Edgar Hematologic: No blood thinners, No blood disorders, No bleeding, No anemia, No blood clots Neuro Neurologic: No system reviewed and no additional complaints, except as docu, No as per HPI, No abnormal walking, No abnormal hearing, No abnormal movements, No abnormal speech, No behavioral changes, No burning sensations, No confusion, No seizure-like activity, No unsteadiness, No dizziness, No localized weakness, No frequent falls, No headache(s), No lack of coordination, No loss of vision, No memory loss, No numbness, No other visual disturbances, No radiating pain, No restless legs, No sensory deficit, No fainting, No tingling, No tremor(s), No weakness, No other Exam Const General: no acute distress, well developed, well hydrated Orientation: oriented to person, oriented to place, oriented to time [facility] Head: normocephalic, atraumatic Ears: external ears normal Mouth: moist mucous membranes Eyes Sclera: sclerae normal Pupils: normal by confrontation Neck Neck: no lymphadenopathy noted Neck mass: No Thyroid: thyroid normal, symmetrical Chest Chest palpation & inspection: normal inspection of the chest Breast Palpation: No nipple discharge Resp Effort & Inspection: normal respiratory effort Auscultation: clear to auscultation bilaterally Percussion: percussion normal Cardio Rate: regular rate Rhythm: regular rhythm Heart Sounds: no murmurs GI Palpation: soft, no hepatosplenomegaly, no masses, nontender Rectal Exam: other Other: Rectal exam deferred. Extrem General: normal to inspection, no clubbing, cyanosis or edema Assessment & Plan Problems 1. Anal cancer C21.0 Plan My plan is to do an anal exam rectal exam under examination and general anesthetic in the OR.Patient understands that he may need to do biopsies which could have some bleeding associated with it. Once this is completed then:I have discussed the above with the patient. I have offered the patient colonoscopy for evaluation. I have explained the risks/benefits of the procedure and described the procedure. I have discussed the risks with the patient, including but not limited to: infection, bleeding, perforation of the GI tract requiring emergency surgery, inability to complete the procedure, injury to any internal organs, complications of anesthesia, etc. - the patient understands and agrees to proceed. I have answered all the patient's questions to the patient's satisfaction and the patient has no further questions. The patient has been given instructions for the colon cleansing preparation. Coding Level of Care Code Off vis,est,level 3 Diagnoses Anal cancer C21.0 <Electronically signed by Bradley Archer MD> Date _ Bradley Archer MD Cosigner Signature: Date (if applicable) CC: ~ I have re-examined the patient. There are no clinical changes since date of exam. Procedure Criteria Procedure Type: Elective COVID Risk Discussion: The surgeon/proceduralist and patient have discussed in detail the risk of exposure to and/or potential harm posed by the COVID-19 virus with having a surgery/procedure at this time versus the risk of delaying the surgery/procedure. It is not possible to know either the risk of delaying the surgery or procedure or chance of getting an infection with perfect accuracy, but a joint decision was made between the patient and the surgeon/proceduralist to proceed at this time with the scheduled surgery/procedure as indicated on the consent form.
[2020-03-28 08:00] VITALS: BP 115/69; BP 129/94; PULSE 68; RESP 16; TEMP 36.7; O2SAT 98
--- NOTE | 2020-03-28 08:01 | OP.CCLET_ITS ---
03/28/2020 Carlos Wolf Md Re : Colonoscopy procedure for Lynnette Villasenor Luciano This procedure was performed on Saturday, March 28, 2020. My impressions and recommendations are as follows: Impressions : - The examination was otherwise normal. - No specimens collected. Recommendations : - Discharge patient to home. - Resume previous diet. - Continue present medications. - Repeat colonoscopy in 1 year for surveillance. - Return to primary care physician at appointment to be scheduled. My findings are described in the full procedure note, which is enclosed. If I can be of further assistance, please feel free to contact me at Doctor phone number(s): , Fax: [phone], Work: . Sincerely, MD Bradley Kidd MD 03/28/2020 8:00:26 AM This report has been signed electronically.
--- NOTE | 2020-03-28 08:01 | OP.COLON_ITS ---
Patient Name: Lynnette Jones Procedure Date: 03/28/2020 7:06 AM Date of : 1960 Age: 59 Procedure: Colonoscopy Indications: High risk colon cancer surveillance: Personal history of anal cancer Providers: Bradley Archer MD Referring MD: Carlos Wolf Md Medicines: See the Anesthesia note for documentation of the administered medications Patient Profile: This is a 59 year old female. Refer to note in patient chart for documentation of history and physical. Last Colonoscopy: 2016. Complications: No immediate complications. Procedure: Pre-Anesthesia Assessment: - Prior to the procedure, a History and Physical was performed, and patient medications and allergies were reviewed. The patient's tolerance of previous anesthesia was also reviewed. The risks and benefits of the procedure and the sedation options and risks were discussed with the patient. All questions were answered, and informed consent was obtained. Prior Anticoagulants: The patient has taken no previous anticoagulant or antiplatelet agents. ASA Grade Assessment: II - A patient with mild systemic disease. After reviewing the risks and benefits, the patient was deemed in satisfactory condition to undergo the procedure. After I obtained informed consent, the scope was passed under direct vision. Throughout the procedure, the patient's blood pressure, pulse, and oxygen saturations were monitored continuously. The colonoscope was introduced through the anus and advanced to the cecum, identified by appendiceal orifice and ileocecal valve. The colonoscopy was performed without difficulty. The patient tolerated the procedure well. The quality of the bowel preparation was good. Scope In: 7:44:54 AM Scope Withdrawal Time 0 hours 7 minutes 15 seconds Scope Out: 7:56:30 AM Total Procedure Duration Time 0 hours 11 minutes 36 seconds Findings: The perianal and digital examinations were normal. Pertinent negatives include no palpable rectal lesions. The exam was otherwise without abnormality. Impression: - The examination was otherwise normal. - No specimens collected. Recommendation: - Discharge patient to home. - Resume previous diet. - Continue present medications. - Repeat colonoscopy in 1 year for surveillance. - Return to primary care physician at appointment to be scheduled. Procedure Code(s): --- Professional --- 70261, Colonoscopy, flexible; diagnostic, including collection of specimen(s) by brushing or washing, when performed (separate procedure) Diagnosis Code(s): --- Professional --- Z85.048, Personal history of other malignant neoplasm of rectum, rectosigmoid junction, and anus CPT copyright 2017 [employer]. All rights reserved. The codes documented in this report are preliminary and upon cotton tipper review may be revised to meet current compliance requirements. MD Bradley Kidd MD 03/28/2020 8:00:26 AM This report has been signed electronically. Number of Addenda: 0 Note Initiated On: 03/28/2020 7:06 AM
[2020-03-28 08:05] VITALS: BP 106/68; BP 129/94; PULSE 72; RESP 16; O2SAT 99
[2020-03-28 08:10] VITALS: BP 105/68; BP 129/94; PULSE 74; RESP 16; O2SAT 100
[2020-03-28 08:15] VITALS: BP 121/74; BP 129/94; PULSE 73; RESP 16; TEMP 36.4; O2SAT 100
[2020-03-28 08:41] VITALS: BP 129/94
== END 2020-03-28 08:41 | disposition home or self-care (01) ==
LOC: EN 06:26 → AC 06:28
PROVIDERS: Anesthesiology; PCP Family Medicine; Referring Provider Family Medicine; Visit Provider Surgery
PROC: 0DJD8ZZ Inspection of Lower Intestinal Tract, Via Natural or Artificial Opening Endoscopic (ICD-10-PCS; CPT 45378; principal; 2020-03-28 07:25)
DX: Z12.11 Encounter for screening for malignant neoplasm of colon (principal); Z85.048 Personal history of other malignant neoplasm of rectum, rectosigmoid junction, and anus; Z11.59 Encounter for screening for other viral diseases; K21.9 Gastro-esophageal reflux disease without esophagitis; F17.200 Nicotine dependence, unspecified, uncomplicated
CPT/HCPCS: 45378; 87635; 94799; J7120; J1610; J2405; U0003

== ENCOUNTER → 2020-07-10 12:27 | Outpatient (CLI) | payer BC, SELFPAY ==
[2018-06-14 14:45] VITALS: BMI 24.6
[2019-11-10 13:58] VITALS: BMI 25.9
--- NOTE | 2020-07-10 12:28 | CT_ITS ---
STUDY: CT ABDOMEN AND PELVIS WITH CONTRAST REASON FOR EXAM: Female, 59 years old. Follow up anal cancer, RADIATION AND CHEMO RADIATION DOSAGE (If Supplied By Facility): CTDIvol = ( 8.40 ) mGy, DLP = ( 382.63 ) mGycm TECHNIQUE: Transaxial images were obtained from the dome of the diaphragm to the symphysis pubis without oral contrast. IV 100mL Isovue-300 was administered. Sagittal and coronal images were reconstructed. Individualized dose optimization techniques were used for this CT. COMPARISON: Comparison is made with prior study dated 05/09/2019. FINDINGS: The visualized lung bases are unremarkable. The visualized portions of the heart are within normal limits. Stable 2 cm cyst in the left lobe of the liver. Normal gallbladder and extrahepatic biliary system. Normal spleen. Normal pancreas. Normal bilateral adrenal glands. Normal right kidney. Normal left kidney. Normal visualized stomach. Normal small intestine. Normal colon. The appendix is visualized and appears normal. There is scattered atherosclerotic calcification of the abdominal aorta, without a demonstrated aneurysm. Normal inferior vena cava. Normal retroperitoneum. Normal urinary bladder. Normal abdominal wall. There are diffuse degenerative changes of the visualized lumbar spine. CT/Abdomen/Pelvis W IV Cont ONLY IMPRESSION: Stable cyst in the left lobe of the liver. No significant change. Electronically Signed: Ricky Guy, at 14:00 EST , Service support ,
--- NOTE | 2020-07-10 12:28 | CT_ITS ---
STUDY: CT CHEST WITH CONTRAST REASON FOR EXAM: Female, 59 years old. Follow up anal cancer, RADIATION/ CHEMO RADIATION DOSAGE (If Supplied By Facility): CTDIvol = ( 8.71 ) mGy, DLP = ( 217.82 ) mGycm TECHNIQUE: Transaxial imaging was performed following intravenous administration of IV 100mL Isovue-300. Multiplanar coronal and sagittal images were reformatted. Individualized dose optimization techniques were used for this CT. COMPARISON: Comparison is made with prior study dated 05/09/2019. FINDINGS: The lungs are normal. There is no demonstrated pleural abnormality. Normal heart and pericardium. Normal mediastinum. Normal hilar regions. Normal enhanced pulmonary arteries. Normal aorta arch and descending thoracic aorta. There are multi-level degenerative changes of the thoracic spine. There is no demonstrated abnormality of the visualized upper abdomen. CT/Chest WITH Contrast IMPRESSION: Stable examination. No acute abnormality is seen. Electronically Signed: Ricky Guy, at 14:01 EST , Service support ,
[2020-07-10 12:58] LABS: Absolute Lymphocyte Count 1.14 X10^3/uL (0.83-4.51); Absolute Neutrophil Count 5.1 X10^3/uL (2.0-7.7); Basophil# 0.03 X10^3/uL; Basophil% 0.4 % (0-1); Eosinophil# 0.25 X10^3/uL; Eosinophils% 3.3 % (0-5); Hematocrit 38.4 % (37-47); Hemoglobin 12.5 g/dL (12.0-15.0); Lymphocyte # 1.14 X10^3/ul (4.0); Lymphocyte % 14.9 % (19-41); Mean Corp Hgb Conc 32.6 g/dL (32-36); Mean Corpuscular Volume 98.2 fL (81-99); Mean Platelet Vol. 8.3 fl (6.2-12.0); Monocyte# 1.08 X10^3/uL; Monocyte% 14.1 % (0-10); NRBC Flagged by Analyzer 0 % (0-5); Neutrophil # 5.12 X10^3/uL (2.7-7.7); Platelet Count 228 K/mm3 (150-450); RBC Distribution Width CV 12.8 % (11.6-14.6); RBC Distribution Width SD 45.8 fl (35.1-43.9); Red Blood Count 3.91 M/mm3 (4.2-5.4); White Blood Count 7.6 K/mm3 (4.4-11.0)
[2020-07-10 13:13] LABS: ALB/GLOB Ratio 1.1 RATIO (0.9-2.4); AST(SGOT) 21 U/L (15-37); Alanine Aminotransfer ALT/SGPT 33 U/L (13-56); Albumin, Serum 3.9 g/dL (3.2-5.0); Alkaline Phosphatase 93 U/L (45-117); Anion Gap 4 (5-15); BUN 24 mg/dL (7-18); BUN/Creat Ratio 28.4 RATIO (10-20); Calcium,Total 9.1 mg/dL (8.5-10.1); Chloride 104 mmol/L (98-107); Creatinine, Serum 0.84 mg/dL (0.55-1.02); EST Glomerular Filtration Rate 73 mL/min (>60); Est Glom Filt Rate - Afr Amer 89 mL/min (>60); Globulin 3.5 g/dL (2.2-4.2); Glucose 95 mg/dL (74-106); Potassium 4.3 mmol/L (3.5-5.1); Protein, Total 7.4 g/dL (6.4-8.2); Sodium Level 137 mmol/L (136-145)
[2020-07-10 20:43] LABS: Xtra Tube EP Lab EXTRA TUBE
== END ==
PROVIDERS: PCP Family Medicine; Referring Provider Internal Medicine Hematology & Oncology; Visit Provider Internal Medicine Hematology & Oncology
DX: C21.0 Malignant neoplasm of anus, unspecified (principal); C77.9 Secondary and unspecified malignant neoplasm of lymph node, unspecified
CPT/HCPCS: 71260; 74177; 80053; 85025; Q9967

== ENCOUNTER → 2020-08-28 12:43 | Outpatient (CLI) | payer BC, SELFPAY ==
[2018-06-14 14:45] VITALS: BMI 24.6
--- NOTE | 2020-08-28 12:45 | BI_ITS ---
MAMMOGRAPHY - BILATERAL SCREENING REASON FOR EXAM: Female, 59 years old. Routine annual screening examination. PERTINENT HISTORY: Non-contributory. TECHNIQUE: Digital bilateral breast linda (3D mammographic acquisition) in the CC and MLO projections. 2-D mediolateral oblique (MLO) and craniocaudad (CC) views of both breasts were obtained. CAD: Full Field Digital Mammography with Computer Added Detection was performed. COMPARISON: Comparison is made with prior study dated 08/22/2019 and 06/19/2018. FINDINGS: Breast Composition: The breasts are heterogeneously dense, which may obscure small masses. There are no dominant masses or suspicious calcifications. No other significant abnormalities are identified. There has been no significant change since the prior study. BI/SCREEN MAMM (CAD) W/LINDA BILAT IMPRESSION: Stable bilateral screening mammogram. Yearly follow-up mammogram recommended. (A) ASSESSMENT CATEGORY: BIRADS Category 1: Negative. A letter regarding these results will be sent to the patient by the facility within 30 days. Approximately 10% of breast cancers are not detected by mammography. A normal mammogram should not delay biopsy of a clinically suspicious abnormality. [id number] Electronically Signed: Ricky Guy, at 9:11 EST , Service support ,
== END ==
PROVIDERS: PCP Family Medicine; Referring Provider Internal Medicine Hematology & Oncology; Visit Provider Internal Medicine Hematology & Oncology
DX: Z12.31 Encounter for screening mammogram for malignant neoplasm of breast (principal)
CPT/HCPCS: 77063; 77067

== ENCOUNTER → 2021-08-06 12:43 | Outpatient (CLI) | payer BC, SELFPAY ==
[2018-06-14 14:45] VITALS: BMI 24.6
[2021-01-31 14:36] VITALS: BMI 24.7
--- NOTE | 2021-08-06 12:47 | CT_ITS ---
STUDY: LOW DOSE CT LUNG CANCER SCREENING REASON FOR EXAM: Female, 60 years old. Lung cancer screening -- 20 pk yr hx; current smoker; asymptomatic RADIATION DOSAGE (If Supplied By Facility): CTDIvol = ( 2.01 ) mGy, DLP = ( 69.97 ) mGycm TECHNIQUE: No contrast was administered. Low dose technique was utilized (average mAS-38 and kVp 120). 1.25 mm axial source images with a slice interval of 1.25-mm were reconstructed in lung windows. 2.5 mm axial source images with a slice interval of 2.5-mm were reconstructed in lung windows. 5.0 mm axial source images with a slice interval of 5.0-mm were reconstructed in soft tissue windows. Nodule measured using lung windows on PACS and/or independent workstation with automated measurement of minimum and maximum diameter. Nodule measurement reported as average diameter rounded to the nearest whole number. Growth is defined as an increase ins size of greater than 1.5 mm. COMPARISON: Comparison is made with prior study 07/10/2020. NODULES: No suspicious nodules are seen. Emphysema: Emphysematous changes. No consolidation is seen. Endobronchial lesion: None Aorta: Atherosclerotic plaques of the aortic arch. Coronary arteries: Coronary artery calcification. Heart: Unremarkable Pulmonary artery: Unremarkable Mediastinal nodes: Small mediastinal lymph nodes. Other chest and abdominal findings: CT/Low Dose CT Lung Screening IMPRESSION: Lung-RADS category 2 - Continue annual screening with LDCT in 12 months. IMPORTANT NOTES FOR USE: ACR Lung-RADS Version 1.1 Assessment Categories Release Date: 2018 Category: Coded 0-4 bases on nodule(s) with highest degree of suspicion. Negative screen is defined as categories 1 and 2; a positive screen is defined as categories 3 and 4. Category 3 and 4A nodules that are unchanged on interval CT should be coded as category 2, and individuals returned to screening in 12 months. Category 4X: Category 3 or 4 nodules with additional imaging findings that increase the suspicion of lung cancer, such as spiculation, GGN that doubles in size in 1 year, enlarged lymph notes, etc. Category Modifiers: S (significant finding unrelated to lung cancer) Electronically Signed: Ricky Guy MD at 15:49 EST , Service support ,
== END ==
PROVIDERS: Referring Provider Nurse Practitioner Family; Visit Provider Nurse Practitioner Family
DX: Z87.891 Personal history of nicotine dependence (principal); Z12.2 Encounter for screening for malignant neoplasm of respiratory organs
CPT/HCPCS: 71271

== ENCOUNTER 2021-09-20 12:28 | Outpatient (CLI) | payer BC, SELFPAY ==
[2018-06-14 14:45] VITALS: BMI 24.6
--- NOTE | 2021-09-20 12:30 | BI_ITS ---
MAMMOGRAPHY - BILATERAL SCREENING REASON FOR EXAM: Female, 60 years old. Routine annual screening examination. PERTINENT HISTORY: Non-contributory. TECHNIQUE: Digital bilateral breast linda (3D mammographic acquisition) in the CC and MLO projections. 2-D mediolateral oblique (MLO) and craniocaudad (CC) views of both breasts were obtained. CAD: Full Field Digital Mammography with Computer Added Detection was performed. COMPARISON: Comparison is made with prior study dated 08/28/2020 and 08/22/2019. FINDINGS: Breast Composition: The breasts are heterogeneously dense, which may obscure small masses. There are no dominant masses or suspicious calcifications. No other significant abnormalities are identified. There has been no significant change since the prior study. BI/SCRN MAMM (CAD)W/LINDA BILAT IMPRESSION: Stable bilateral screening mammogram. Yearly follow-up mammogram recommended. (A) ASSESSMENT CATEGORY: BIRADS Category 1: Negative. A letter regarding these results will be sent to the patient by the facility within 30 days. Approximately 10% of breast cancers are not detected by mammography. A normal mammogram should not delay biopsy of a clinically suspicious abnormality. [id number] Electronically Signed: Ricky Guy MD at 13:29 EST , Service support ,
== END 2021-09-20 23:59 | disposition short-term general hospital (02) ==
LOC: OPBI 12:29
PROVIDERS: Referring Provider Internal Medicine Hematology & Oncology; Visit Provider Internal Medicine Hematology & Oncology
DX: Z12.31 Encounter for screening mammogram for malignant neoplasm of breast (principal)
CPT/HCPCS: 77063; 77067

== ENCOUNTER 2021-12-19 12:44 | Outpatient (CLI) | payer BC, SELFPAY ==
[2018-06-14 14:45] VITALS: BMI 24.6
[2021-12-19 13:31] LABS: Vitamin D,25 Hydroxy 35.3 ng/mL
[2021-12-19 13:37] LABS: ALB/GLOB Ratio 1.1 RATIO (0.9-2.4); AST(SGOT) 26 U/L (15-37); Alanine Aminotransfer ALT/SGPT 41 U/L (13-56); Albumin, Serum 4.1 g/dL (3.2-5.0); Alkaline Phosphatase 105 U/L (45-117); Anion Gap 5 (5-15); BUN 17 mg/dL (7-18); BUN/Creat Ratio 21.9 RATIO (10-20); Calcium,Total 9.3 mg/dL (8.5-10.1); Chloride 103 mmol/L (98-107); Cholesterol 215 mg/dL (200); Creatinine, Serum 0.78 mg/dL (0.55-1.02); EST Glomerular Filtration Rate 80 mL/min (>60); Est Glom Filt Rate - Afr Amer 97 mL/min (>60); Globulin 3.8 g/dL (2.2-4.2); Glucose 67 mg/dL (74-106); High Density Lipoprotein 87 mg/dL; Potassium 4.3 mmol/L (3.5-5.1); Protein, Total 7.9 g/dL (6.4-8.2); Sodium Level 138 mmol/L (136-145); Thyroid Stim Hormone (TSH) 1.76 uIU/mL (0.358-3.74); Triglycerides 107 mg/dL; Very Low Density Lipoprotein 21 mg/dL (5-40)
== END 2021-12-19 23:59 | disposition home or self-care (01) ==
LOC: PAVLAB 12:45
PROVIDERS: PCP Internal Medicine; Referring Provider Internal Medicine; Visit Provider Internal Medicine
DX: I10 Essential (primary) hypertension (principal)
CPT/HCPCS: 36415; 80053; 80061; 82306; 84443

== ENCOUNTER → 2022-09-23 | Outpatient (CLI) | payer BC, SELFPAY ==
[2018-06-14 14:45] VITALS: BMI 24.6
--- NOTE | 2022-09-23 10:28 | BI_ITS ---
MAMMOGRAPHY - BILATERAL SCREENING REASON FOR EXAM: Female, 61 years old. Routine annual screening examination. PERTINENT HISTORY: Non-contributory. TECHNIQUE: Digital bilateral breast linda (3D mammographic acquisition) in the CC and MLO projections. 2-D mediolateral oblique (MLO) and craniocaudad (CC) views of both breasts were obtained. CAD: Full Field Digital Mammography with Computer Added Detection was performed. COMPARISON: Comparison is made with prior study dated 2021 and 08/28/2020. FINDINGS: Breast Composition: The breasts are heterogeneously dense, which may obscure small masses. There are no dominant masses or suspicious calcifications. No other significant abnormalities are identified. There has been no significant change since the prior study. BI/SCRN MAMM (CAD)W/LINDA BILAT IMPRESSION: Stable bilateral screening mammogram. Yearly follow-up mammogram recommended. (A) ASSESSMENT CATEGORY: BIRADS Category 1: Negative. A letter regarding these results will be sent to the patient by the facility within 30 days. Approximately 10% of breast cancers are not detected by mammography. A normal mammogram should not delay biopsy of a clinically suspicious abnormality. [id number] Electronically Signed: Ricky Guy MD at 11:28 EST ,
== END | disposition home or self-care (01) ==
PROVIDERS: PCP Internal Medicine; Visit Provider Internal Medicine Hematology & Oncology
DX: Z12.31 Encounter for screening mammogram for malignant neoplasm of breast (principal)
CPT/HCPCS: 77063; 77067

== ENCOUNTER → 2023-09-08 | Outpatient (CLI) | payer BC, SELFPAY ==
[2018-06-14 14:45] VITALS: BMI 24.6
== END | disposition home or self-care (01) ==
LOC: CT 12:47
PROVIDERS: PCP Internal Medicine; Referring Provider Nurse Practitioner Family; Visit Provider Nurse Practitioner Family
DX: Z00.00 Encounter for general adult medical examination without abnormal findings (principal)

== ENCOUNTER → 2023-09-24 | Outpatient (CLI) | payer BC, SELFPAY ==
[2018-06-14 14:45] VITALS: BMI 24.6
--- NOTE | 2023-09-24 09:28 | BI_ITS ---
MAMMOGRAPHY - BILATERAL SCREENING REASON FOR EXAM: Female, 62 years old. Routine annual screening examination. PERTINENT HISTORY: Non-contributory. TECHNIQUE: Digital bilateral breast linda (3D mammographic acquisition) in the CC and MLO projections. 2-D mediolateral oblique (MLO) and craniocaudad (CC) views of both breasts were obtained. CAD: Full Field Digital Mammography with Computer Added Detection was performed. COMPARISON: Comparison is made with prior study dated March 23, 2023 and September 20, 2021. FINDINGS: Breast Composition: The breasts are heterogeneously dense, which may obscure small masses. There are no dominant masses or suspicious calcifications. No other significant abnormalities are identified. There has been no significant change since the prior study. BI/SCRN MAMM (CAD)W/LINDA BILAT IMPRESSION: Stable bilateral screening mammogram. Yearly follow-up mammogram recommended. (A) ASSESSMENT CATEGORY: BIRADS Category 1: Negative. A letter regarding these results will be sent to the patient by the facility within 30 days. Approximately 10% of breast cancers are not detected by mammography. A normal mammogram should not delay biopsy of a clinically suspicious abnormality. [id number] Electronically Signed: Ricky Guy MD at 10:19 EST ,
== END | disposition home or self-care (01) ==
LOC: OPBI 09:28
PROVIDERS: PCP Internal Medicine; Referring Provider Internal Medicine Hematology & Oncology; Visit Provider Internal Medicine Hematology & Oncology
DX: Z12.31 Encounter for screening mammogram for malignant neoplasm of breast (principal)
CPT/HCPCS: 77063; 77067

== ENCOUNTER → 2024-09-27 | Outpatient (CLI) | payer BC, SELFPAY ==
[2018-06-14 14:45] VITALS: BMI 24.6
--- NOTE | 2024-09-27 12:15 | CT_ITS ---
PROCEDURE: LOW DOSE CT LUNG SCREENING REASON FOR EXAM: 20 pack-year history of smoking. Current smoker. TECHNIQUE: Low Dose CT Lung Screening without contrast COMPARISON: Comparison is made with prior study dated September 08, 2023. FINDINGS: PULMONARY NODULES: (Only nodules >6mm are reported) Pulmonary Nodules: No concerning pulmonary nodules. Hardware:None Lymph Nodes:No mediastinal hilar or axillary lymphadenopathy. Heart and Vasculature:Normal heart size. No pericardial effusion.Thoracic aorta and pulmonary arterie s have normal contours; noncontrast technique limits evaluation. Coronary Artery Calcifications: Present Lungs and Airways: Mild emphysematous changes are present. Pleura:No pleural effusion. No pneumothorax. Upper Abdomen:Visualized portions of the upper abdominal viscera are unremarkable. Bones:Bone windows are unremarkable. CT/Low Dose CT Lung Screening IMPRESSION: 1. BASED ON THE ACR LUNG RADS FOR THE MOST SUSPICIOUS NODULE (IF ANY) DESCRIBE D IN THIS REPORT, THE OVERALL LUNG RADS SCORE IS 1. 1 - NEGATIVE. RECOMMEND 12-MONTH SCREENING LDCT.. 2. SMOKING CESSATION COUNSELING IS RECOMMENDED IF THE PATIENT IS STILL SMOKING . 3. OTHER SIGNIFICANT FINDINGSNone. One or more dose reduction techniques were used (e.g., Automated exposure contr ol, adjustment of the mA and/or kV according to patient size, use of iterative reconstruction technique). The following information is provided for reference:Lung-RADS 2021 Assessment C ategories. Additional information involving Lung-RADS is available at www.[email or web address].org. 0-INCOMPLETE 1-NEGATIVE:No nodules or definitely benign nodules. Complete, central, popcorn , or centric ring calcifications OR fat containing 2-BENIGN APPEARANCE (based on imaging features or indolent behavior). Juxtaple ural nodule: < 10mm AND solid; smooth margins; oval, entiform, or triangular shape Solid nodule: <6mm at baseline or new< 4mm Part solid Nodule: < 6mm total mean diameter at baseline Nonsolid nodule:(GGN) < 30mm OR >=30mm stable or slowly growing Airway nodule, subsegmental at baseline, new, or stable Category 3 nodule stabl e or decreased in size at 6-month follow-up CT or Category 3 or 4A nodules that resolve on follow-up OR category 4B findings prov en to be benign following diagnotic work up. 3 - Probably Benign (Based on imaging features or behavior) Solid Nodule: >= 6 to <8mm at baseline OR new 4 to <6mm Part-solid nodule: >= 6mm toal mean diam. with solid component <6mm at baseline OR new < 6mm total mean diam. Non-solid nodule: GGN >= 30mm at baseline or new Atypical pulmonary cyst: Growing cystic component (mean diam.) of thick-walled cyst Category 4A nodule stable or decreased in size at 3-month follow-up CT (excl.ai rway). 4A - Suspicious Solid nodule: >=8 to < 15mm at baseline OR growing < 8mm OR new 6 to < 8mm Part solid nodule: >= 6mm total mean diam. w/ solid component >=6mm to < 8mm at baseline OR new or growing < 4mm solid component Airway nodule, segmental or more proximal at baseline or new Atypical pulmonary cyst: Thick-walled OR multilocular at baseline OR becomes mu ltilocular 4B - Very Suspicious Airway nodule, segmental or more proximal, and stable or growing Solid nodule: >= 15mm at baseline OR new or growing >= 8mm Part solid nodule: Solid component >= 8mm OR new or growing >= 4mm solid compon ent Atypical pulmonary cyst: Thick-walled with growing wall thickness/nodularity OR Growing multilocular (mean diam.) OR Multilocular with increased loculation or new/increased opacity Slow-growing solid or part solid nodule w/ growth over multiple screening exams 4X - Very Suspicious Category 3 or 4 nodules with additional features that increase the suspicion fo r lung cancer. S - Clinically Significant or potentially significant findings (non-lung cancer ) Reading Location: [place] [id number]
== END | disposition home or self-care (01) ==
LOC: CT 12:15
PROVIDERS: PCP Internal Medicine; Referring Provider Nurse Practitioner Family; Visit Provider Nurse Practitioner Family
DX: Z12.2 Encounter for screening for malignant neoplasm of respiratory organs (principal); Z87.891 Personal history of nicotine dependence
CPT/HCPCS: 71271

== ENCOUNTER → 2024-09-27 | Outpatient (CLI) | payer BC, SELFPAY ==
[2018-06-14 14:45] VITALS: BMI 24.6
--- NOTE | 2024-09-27 11:00 | BI_ITS ---
PROCEDURE: SCRN MAMM (CAD)W/LINDA BILAT REASON FOR EXAM: F, Age 63 y/o, routine screening mammogram. TECHNIQUE: Bilateral screening digital breast tomosynthesis with 2D and 3D images. Computer aided detection. COMPARISON: Prior exam(s) dating back to September 24, 2023 and September 23, 2022.. FINDINGS: The breasts are heterogeneously dense. No suspicious masses, areas of developing architectural distortion, or suspicious calcifications. BI/SCRN MAMM (CAD)W/LINDA BILAT IMPRESSION: BI-RADS 1: NEGATIVE. RECOMMEND ANNUAL MAMMOGRAPHIC SCREENING. Stable examinati on. Follow-up code: Routine Follow-up The patient will be notified of the results by letter. Reading Location: [place] [id number]
== END | disposition home or self-care (01) ==
LOC: OPBI 10:39
PROVIDERS: PCP Internal Medicine; Referring Provider Internal Medicine Hematology & Oncology; Visit Provider Internal Medicine Hematology & Oncology
DX: Z12.31 Encounter for screening mammogram for malignant neoplasm of breast (principal)
CPT/HCPCS: 77063; 77067